=== PATIENT | female | born 1930 | race Caucasian/White ===

== ENCOUNTER 2017-10-30 17:21 | Inpatient (IN) | payer MEDICARE, OTHER ==
[2017-10-30 18:17] LABS: Bilirubin Negative (Negative); Blood, Urine Negative (Negative); Clarity CLEAR (Clear); Glucose, Urine (Dipstick) Negative (Negative); Leukocyte Negative (Negative); Nitrite Negative (Negative); Protein, Urine (Dipstick) Negative (Neg-Trace); Specific Gravity, Urine 1.015 (1.002-1.036); Urobilinogen 0.2 mg/dL (0.2-1.0); pH, Urine 6.5 (5.0-9.0)
--- NOTE | 2017-10-30 18:47 | RAD ---
PORTABLE CHEST: 10/30/17 HISTORY: Shortness of breath. COMPARISON: 04/26/15. Lungs show no evidence of focal infiltrate. Heart size is within normal range. Mild increased interst itial markings which appear more prominent than on the prior study. Vascular markings do not appear c ongested. No effusion. IMPRESSION: Chronic appearing interstitial markings. No focal infiltrate or evidence of acute process. POS: [facility]
[2017-10-30 19:03] LABS: Hemoglobin 9.6 g/dL (12.0-16.0); Mean Corpuscular HGB CONC 32.6 g/dL (32.0-36.0); Mean Corpuscular Hemoglobin 32.9 pg (27.0-31.0); Mean Platelet Volume 7.5 fL (7.4-10.4); Platelet Count 248 thou/uL (130-400); RBC Distribution Width 15.6 % (11.5-14.5); Red Blood Cell (RBC) Count 2.93 mill/uL (4.20-5.40); White Blood Cell (WBC) Count 9.4 thou/uL (4.8-10.8)
[2017-10-30 19:07] LABS: INR-International Normal Ratio 1.3; PTT 41.1 SEC (22.9-36.1); Prothrombin Time 16.5 SEC (12.0-14.7)
[2017-10-30 19:23] LABS: Anisocytosis SLIGHT = 6-15 cells (100X) (0-5/hpf); Band 4 % (5-11); Hypochromia SLIGHT = 6-15 cells (100X) (0-5/hpf); Lymphocytes 9 % (21-51); MDiff Complete? YES; Monocytes 8 % (0-10); Neutrophil 79 % (42-75); PLT Morphology Comment Appears Adequate
[2017-10-30 19:26] LABS: CKMB 6.1 ng/mL (0-6.6)
[2017-10-30 19:28] LABS: ALT (SGPT) 22 U/L (8-55); AST (SGOT) 165 U/L (5-34); Albumin 3.2 g/dL (3.4-4.8); Alkaline Phosphatase 141 U/L (40-150); Anion Gap 14 mmol/L (10-20); BUN (Urea Nitrogen) 20 mg/dL (9.8-20.1); CK (CPK) 115 U/L (29-168); Calc. Creatinine Clearance 0 mL/min (70-130); Calcium 8.9 mg/dL (7.8-10.44); Carbon Dioxide 20 mmol/L (23-31); Chloride 98 mmol/L (98-107); Estimated GFR-MDRD 53; Globulin 2.5 g/dL (2.4-3.5); Lipase 19 U/L (8-78); Potassium 3.8 mmol/L (3.5-5.1); Protein, Total 5.7 g/dL (6.0-8.3); Sodium 128 mmol/L (136-145)
--- NOTE | 2017-10-30 19:28 | CT ---
CT HEAD WITHOUT CONTRAST 10/30/17 Multiple axial tomograms obtained through the head without IV enhancement. HISTORY: Weakness. Mild cortical atrophy. Ventricles have normal size and position. No evidence of mass or hemorrhage. N o evidence of acute infarct identified. IMPRESSION: No acute process identified. POS: [facility]
[2017-10-30 19:31] LABS: Glucose 59 mg/dL (83-110); Troponin I 2.315 ng/mL (< 0.028)
[2017-10-30] MEDS ORDERED: Dextrose 50% Abboject 50 ML SYRINGE ONE (20:06)
[2017-10-30] MEDS ORDERED: Enoxaparin Sodium 60 MG/0.6 ML SYRINGE ONE (20:48)
[2017-10-30 22:14] LABS: Critical Call Chem Troponin I RESULT DECREASING
[2017-10-31] MEDS ORDERED: Sodium Chloride 0.9% 1,000 ML IV SCH (01:15)
[2017-10-31] MEDS ORDERED: Ondansetron ODT 4 MG TAB SL PRN (01:16)
[2017-10-31] MEDS ORDERED: Ondansetron HCl/PF 4 MG/2 ML Vial IVP PRN (01:16)
[2017-10-31 01:38] LABS: Critical Call Chem Troponin I RESULT DECREASING; Troponin I 2.151 ng/mL (< 0.028)
[2017-10-31] MEDS ORDERED: Morphine 5 MG/ML SYRINGE SLOW IVP PRN (03:43)
[2017-10-31] MEDS ORDERED: Acetaminophen 325 MG TAB PO PRN (03:46)
[2017-10-31] MEDS: Sodium Chloride 0.9% 1,000 ML IV SCH ×3 (04:20→11:50)
--- NOTE | 2017-10-31 04:55 | HP ---
CHIEF COMPLAINT: Weakness and a fever of 101-102 at home. HISTORY OF PRESENT ILLNESS: This is an 87-year-old female with a known history of hypothyroidism who presents with a chief complaint of weakness. The patient herself is a marginal historian. It appears that the patient has a longstanding complaint of weakness extending as far back as last August when she switched primary care providers. The patient herself attributes her constellation of symptoms predominantly weakness and decreased appetite due to the change in her thyroid medication. However, when inquired as to why the patient presented today the patient states that her daughter went to go check on her, brought her into the emergency department. The patient has extreme amount focus on her hypothyroidism and her thyroid medication dosage and feels that her entire presentation is attributed to this. Despite discussing with the patient concern over her cardiac status the patient has difficulty recalling this even minutes after that was discussed. At the time of my evaluation, the patient denies any active shortness of breath, chest pain, or otherwise pain. REVIEW OF SYSTEMS: As per HPI, question the accuracy of the review of systems. CONSTITUTIONAL: Per the patient, she has not had any subjective fevers or chills per the patient, she is not aware of her weight loss or gain status. HEENT: The patient denies any active headaches, vision changes. CARDIOVASCULAR: The patient overtly denies any chest pain. She endorses generalized weakness, but denies any overt chest pressure or dyspnea with exertion or left-sided arm numbness or tingling. RESPIRATORY: The patient denies any shortness of breath, any recent upper respiratory type infections. Denies any sinus congestion, postnasal drip or cough. GASTROINTESTINAL: The patient endorses that she has been eating less and that she attributes this to being unable to ambulate to her kitchen due to her arthritis. She overtly denies any nausea. Denies any early satiety. Denies any loss of appetite. GENITOURINARY: Denies any dysuria, change in urinary color or frequency or quantity. MUSCULOSKELETAL: The patient endorses a longstanding history of arthritis. Denies any recent changes to her arthritis. Denies any new arthralgias or any new myalgias. The remainder of the review of systems is otherwise negative. PAST MEDICAL HISTORY: 1. The patient's only recollection of the past medical history is of hypothyroidism. 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 2. Esophageal stenosis. 3. Gastroesophageal reflux disease. 4. Status post bilateral cataracts. 5. Status post appendectomy. 6. Status post left hip surgery. Please note that the hip surgery is a hip replacement in 02/2015. 7. Status post right elbow surgery. 8. Status post tonsillectomy. SOCIAL HISTORY: The patient drinks daily. Denies any alcohol or tobacco use. Patient lives by herself next door to her daughter. CODE STATUS: The patient endorses that she wishes to be a full code at this point in time. The daughter will be her medical decision maker if she is unable to provide her own medical decisions. MEDICATIONS: Please see EMR. Other than her thyroid medication the patient denies taking any other medications. She does endorse taking a number of over the counter vitamins, but is unable to recall which ones. Denies any change to whatever she is taking outpatient over the counter in the last month. ALLERGIES: No known drug allergies. PHYSICAL EXAMINATION: VITAL SIGNS: Temperature 97.9, pulse of 85, respirations 18, satting 93% on 2 liters nasal cannula, blood pressure 118/60. GENERAL: The patient is awake, alert, appropriate. She appears very thin, lying in the hospital bed. HEENT: Very dry mucous membranes. Equal ocular motions are intact. Pupils are equal and reactive. CARDIOVASCULAR: S1, S2. Pulses 2+ bilateral upper extremities, no pitting pedal edema. No JVD. RESPIRATORY: Marginal air movement. No wheezes, rales or rhonchi. ABDOMEN: Positive bowel sounds, soft, nontender to palpation. NEUROLOGIC: The patient is able to move all 4 extremities. She appears extremely thin and cachectic. LABORATORY AND IMAGING: WBC 9.4, hemoglobin 9.6, hematocrit 29.6, platelets 248. PT 16.5. Sodium 128, potassium 3.8, chloride 98, BUN 20, creatinine 0.99 , glucose of 59. Repeat point of care glucose is 121. Lactic acid 2.0, calcium 8.9, total bilirubin 1.0, AST 165, ALT 22, alkaline phosphatase 141. Creatinine kinase 115. Initial troponin 2.315 followed by 2.180 followed by 2.151. B-natriuretic peptide 127.5, total protein 5.7, albumin 3.2. TSH 0.2207. UA is essentially bland. ASSESSMENT AND PLAN: An 87-year-old female presenting with weakness. 1. Weakness. The patient certainly gives a history consistent with failure to thrive. I am not clear how accurate of a historian the patient actually is. I suspect that she has had overall decreased p.o. intake. This can certainly lead to her progressive presentation. However, this does not accurately describe her elevated troponin today. 2. Lya-TF-gffglil elevation myocardial infarction with an elevated troponin. I appreciate Cardiology consult. The patient has received full dose Lovenox as her anticoagulation. Pending a fasting lipid panel, serial troponin, repeat EKG in the morning along with echocardiogram. 3. Hypothyroidism. The patient certainly preservates to a certain degree about her levothyroxine dosing. It appears on outpatient basis this has been increased to the levothyroxine dosage she has had for years prior to her changing primary care provider. She has a slightly depressed TSH at 0.2207. We will repeat and check a T4 level in the morning as well and modify her doses as needed. 4. Concern for failure to thrive. Please see discussion above. We will consult dietary, physical therapy. 5. History of esophageal stenosis. If the patient has any concern for difficulty swallowing as a cause for her decreased p.o. intake to consider a barium swallow and further evaluation for restenosis. Suspect that the patient may have sustained some weight loss and her current clinical and physical presentation is consistent with the degree of malnutrition. 6. Dietary: As tolerated. 7. Activity: Out of bed as tolerated. 8. Deep venous thrombosis prophylaxis, full dose anticoagulation with Lovenox. CODE STATUS: The patient is full code. Admit to inpatient services telemetry monitoring. Thank you for asking me to care for the patient. With questions or concerns, please contact me at [facility]. VIBHA
[2017-10-31] MEDS: Levothyroxine Sodium 50 MCG TAB PO SCH (05:22)
[2017-10-31 05:56] LABS: Troponin I 2.558 ng/mL (< 0.028)
[2017-10-31] MEDS ORDERED: Aspirin 325 MG TAB PO SCH (08:00)
[2017-10-31] MEDS ORDERED: Prevnar 13-Val Conj/PF 0.5 ML SYRINGE IM ONE (09:00)
[2017-10-31 09:11] LABS: Hemoglobin 9.2 g/dL (12.0-16.0); Mean Corpuscular HGB CONC 33.3 g/dL (32.0-36.0); Mean Corpuscular Hemoglobin 34.1 pg (27.0-31.0); Mean Platelet Volume 7.8 fL (7.4-10.4); Platelet Count 219 thou/uL (130-400); RBC Distribution Width 15.9 % (11.5-14.5); Red Blood Cell (RBC) Count 2.69 mill/uL (4.20-5.40); White Blood Cell (WBC) Count 7.3 thou/uL (4.8-10.8)
[2017-10-31 09:32] LABS: Anion Gap 11 mmol/L (10-20); BUN (Urea Nitrogen) 16 mg/dL (9.8-20.1); Calc. Creatinine Clearance 35 mL/min (70-130); Calcium 8.1 mg/dL (7.8-10.44); Carbon Dioxide 18 mmol/L (23-31); Chloride 102 mmol/L (98-107); Estimated GFR-MDRD 64; Glucose 72 mg/dL (83-110); Potassium 3.9 mmol/L (3.5-5.1); Sodium 127 mmol/L (136-145)
[2017-10-31 09:40] LABS: Band 9 % (5-11); Eosinophils 2 % (0-10); Lymphocytes 21 % (21-51); MDiff Complete? YES; Monocytes 14 % (0-10); Neutrophil 53 % (42-75); RBC Morphology Normal; Reactive Lymphocytes 1 % (0-10)
[2017-10-31 10:09] LABS: Iron 68 ug/dL (50-170); Iron Binding Capacity, Total 171 mcg/dL (265-497)
[2017-10-31 10:38] LABS: Free T4 (Free Thyroxine) 0.89 ng/dL (0.70-1.48)
[2017-10-31] MEDS ORDERED: Enoxaparin Sodium 60 MG/0.6 ML SYRINGE SC SCH ×2 (10:45→21:00)
[2017-10-31] MEDS ORDERED: Enoxaparin Sodium 40 MG/0.4 ML SYRINGE SC SCH (10:45)
[2017-10-31] MEDS: Oseltamivir 75 MG CAP PO SCH ×2 (11:28→21:34)
[2017-10-31 13:54] LABS: Troponin I 6.817 ng/mL (< 0.028)
[2017-10-31 14:13] LABS: Vitamin B12 Greater than 2000 pg/mL (211-911)
--- NOTE | 2017-10-31 14:40 | PDOC.PN ---
- Subjective Encounter Start Date: 10/31/17 Encounter Start Time: 14:38 Subjective: feels OK. -: still fixated on her thyroid dose. -: reassured that it was correct to reduce the dose by PCP - Objective Resuscitation Status: Resuscitation Status FULL:Full Resuscitation MAR Reviewed: Yes Vital Signs & Weight: Vital Signs (12 hours) Temp Pulse Pulse Pulse Resp BP BP 10/31/17 11:15 80 91 126/60 112/83 10/31/17 04:35 97.4 F L 87 20 BP Pulse Ox 10/31/17 11:15 10/31/17 04:35 124/72 93 L Weight Admit Weight 104 lb 12.8 oz Weight 106 lb 3.2 oz I&O: 10/30/17 10/31/17 11/01/17 06:59 06:59 06:59 Intake Total 493 Balance 493 Result Diagrams: 10/31/17 05:13 10/31/17 08:51 Additional Labs: Accuchecks 10/30/17 21:32 POC Glucose 121 H Microbiology 10/30/17 18:04 Nasal swab Influenza Types A,B Direct EIA - Final 10/30/17 19:27 Venous blood - Right Arm Blood Culture - Preliminary Specimen has been received and culture in progress. No Growth to date. 10/30/17 18:48 Venous blood - Right Arm Blood Culture - Preliminary Specimen has been received and culture in progress. No Growth to date. 10/30/17 18:04 Urine Straight Catheter Urine Culture - Preliminary NO GROWTH AT 12 HOURS Laboratory Tests 11/10/15 12/01/15 05/30/16 15:14 11:17 10:37 Sodium 135 L 138 133 L Iron TIBC % Saturation Troponin I Free T4 Free T3 TSH 3rd Generation 07/20/16 12/11/16 10/30/17 09:06 16:09 18:48 Sodium 133 L 130 L 128 L Iron TIBC % Saturation Troponin I Free T4 Free T3 TSH 3rd Generation 10/30/17 10/30/17 10/30/17 18:48 18:48 21:39 Sodium Iron TIBC % Saturation Troponin I 2.315 H* 2.180 H* Free T4 Free T3 TSH 3rd Generation 0.2207 L 10/31/17 10/31/17 10/31/17 00:50 05:13 08:51 Sodium Iron TIBC % Saturation Troponin I 2.151 H* 2.558 H* 5.300 H* Free T4 Free T3 TSH 3rd Generation 10/31/17 10/31/17 10/31/17 08:51 13:00 Unknown Sodium 127 L Iron 68 TIBC 171 L % Saturation 40 Troponin I 6.817 H* Free T4 Free T3 TSH 3rd Generation 10/31/17 Unknown Sodium Iron TIBC % Saturation Troponin I Free T4 0.89 Free T3 1.62 L TSH 3rd Generation Phys Exam - Physical Examination Constitutional: NAD HEENT: PERRLA, moist MMs, sclera anicteric, oral pharynx no lesions Neck: no nodes, no JVD, supple, full ROM Respiratory: no wheezing, no rales, no rhonchi, clear to auscultation bilateral Cardiovascular: RRR, no significant murmur, no rub, gallop Gastrointestinal: soft, non-tender, no distention, positive bowel sounds Musculoskeletal: no edema, pulses present Neurological: non-focal, normal sensation, moves all 4 limbs Psychiatric: normal affect, A&O x 3 Skin: no rash Dx/Plan (1) NSTEMI (non-ST elevated myocardial infarction) Code(s): I21.4 - NON-ST ELEVATION (NSTEMI) MYOCARDIAL INFARCTION Status: Acute (2) Hyponatremia Code(s): E87.1 - HYPO-OSMOLALITY AND HYPONATREMIA Status: Acute Comment: likley due to Hypothyroidism or dehydration (3) SIRS (systemic inflammatory response syndrome) Code(s): R65.10 - SIRS OF NON-INFECTIOUS ORIGIN W/O ACUTE ORGAN DYSFUNCTION Status: Acute Comment: no Clear source (4) Failure to thrive Code(s): REV0666 - Status: Acute (5) Hypothyroidism Code(s): E03.9 - HYPOTHYROIDISM, UNSPECIFIED Status: Chronic (6) Chronic anemia Code(s): D64.9 - ANEMIA, UNSPECIFIED Status: Chronic - Plan PT/OT, out of bed/ambulate, DVT proph w/SCDs Lovenox.Cardiology consulted.ECHO pending -: Add levaquin empirically .add Tamiflu empirially.NAAT-viral resp panel -: NS .monitor sodium -: unclear if dose of synthroid was recently reduced.will f/u w PCP -: follow Cx.follow labs. * .check Iron,FA,Vit B12. Review of Systems - Review of Systems Constitutional: weakness, malaise. negative: fever, chills, sweats, other ENT: negative: Ear Pain, Ear Discharge, Nose Pain, Nose Discharge, Nose Congestion, Mouth Pain, Mouth Swelling, Throat Pain, Throat Swelling, Other Respiratory: negative: Cough, Dry, Shortness of Breath, Hemoptysis, SOB with Excertion, Pleuritic Pain, Sputum, Wheezing Cardiovascular: negative: chest pain, palpitations, orthopnea, paroxysmal nocturnal dyspnea, edema, light headedness, other Gastrointestinal: negative: Nausea, Vomiting, Abdominal Pain, Diarrhea, Constipation, Melena, Hematochezia, Other Genitourinary: negative: Dysuria, Frequency, Incontinence, Hematuria, Retention , Other Musculoskeletal: negative: Neck Pain, Shoulder Pain, Arm Pain, Back Pain, Hand Pain, Leg Pain, Foot Pain, Other Skin: negative: Rash, Lesions, Boogie, Bruising, Other Neurological: negative: Weakness, Numbness, Incoordination, Change in Speech, Confusion, Seizures, Other - Medications/Allergies Allergies/Adverse Reactions: Allergies Allergy/AdvReac Type Severity Reaction Status Date / Time No Known Allergies Allergy Verified 10/31/17 01:43 Medications: Current Medications Acetaminophen (Tylenol) 650 mg PO Q4H PRN PRN Reason: Headache/Fever or Pain Enoxaparin Sodium (Lovenox) 30 mg SC ONE [facility] Stop: 10/31/17 22:00 Famotidine (Pepcid) 20 mg SLOW IVP DAILY [facility] Levofloxacin 500 mg/ Device 100 mls @ 100 mls/hr IVPB Q24HR [facility] Last Admin: 10/31/17 11:28 Dose: 100 mls Sodium Chloride (Normal Saline 0.9%) 1,000 mls @ 50 mls/hr IV .Q20H [facility] Levothyroxine Sodium (Synthroid) 50 mcg PO 0600 [facility] Last Admin: 10/31/17 05:22 Dose: 50 mcg Morphine Sulfate (Morphine) 2 mg SLOW IVP Q5MIN PRN PRN Reason: Chest Pain Oseltamivir Phosphate (Tamiflu) 75 mg PO BID [facility] Stop: 11/04/17 21:01 Last Admin: 10/31/17 11:28 Dose: 75 mg Sodium Chloride (Flush - Normal Saline) 10 ml IVF Q12HR [facility] Sodium Chloride (Flush - Normal Saline) 10 ml IVF PRN PRN PRN Reason: Saline Flush
[2017-10-31] MEDS: Famotidine/PF 20 mg/2ml Vial SLOW IVP SCH (17:50)
--- NOTE | 2017-10-31 20:53 | CON ---
DATE OF CONSULTATION: 10/31/2017 REASON FOR CONSULTATION: Non-ST elevation myocardial infarction. Ms. Devine is a pleasant 87-year-old patient of Dr. Hipolito Reece with history of mild aortic s tenosis, admitted with generalized weakness and found to have increased troponin levels. Ms. Devine was brought to the emergency room with progressive weakness as predominant symptom. She said she has been weak since at least August but was weaker yesterday and therefore, her daught er brought her to the emergency room. She is not having chest pain, pressure, heaviness or squeezing . Now her breathing is okay. REVIEW OF SYSTEMS: CONSTITUTIONAL: Generalized weakness. VISION: No changes. HEARING: No change s. PULMONARY: No cough or wheezing. CARDIAC: No chest pain. GASTROINTESTINAL: No nausea, vomiti ng, diarrhea. SKIN: No rashes. NEUROLOGIC: No unilateral weakness or numbness. PSYCHIATRIC: No unusual depression or anxiety. HEMATOLOGIC: No unusual bruising. GENITOURINARY: No burning with u rination. MUSCULOSKELETAL: No unusual joint pains. PAST MEDICAL HISTORY: 1. Hypothyroidism. 2. Esophageal stenosis. 3. 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 4. Gastroesophageal reflux. SOCIAL HISTORY: No alcohol or tobacco. CODE STATUS: FULL. MEDICATION AT HOME: Levothyroxine. PHYSICAL EXAMINATION: GENERAL: On examination, this is a very frail-appearing elderly woman. She looks underweight. VITAL SIGNS: 5 foot 3 inches tall, 106 pounds, very little muscle mass, blood pressure is 124/72, pu lse 87. EYES: Sclerae nonicteric. MOUTH: Mucous membranes moist. NECK: Supple, no lymphadenopathy. LUNGS: Clear, no wheezing, rales or rhonchi. CARDIAC: Normal S1, normal S2. There is a 2/6 apical systolic murmur. No diastolic murmur, no S3. ABDOMEN: Soft, nontender. EXTREMITIES: No clubbing, no cyanosis or edema. She has palpable dorsalis pedis pulses. SKIN: Warm and dry. PERTINENT LABORATORY DATA AND IMAGING DATA: Troponin level of 5.3 at peak. Hemoglobin was 9.2. EKG did not show any acute changes, no ST-T wave changes. ASSESSMENT: 1. Generalized weakness. 2. Non-ST elevation infarction without chest pain. 3. Likely iron deficiency anemia. 4. Hyponatremia. 5. History of hypothyroidism on replacement. IMAGING DATA: Echocardiogram revealed normal left ventricular function, mild aortic stenosis, modera te aortic insufficiency and moderate mitral regurgitation. PLAN: 1. She received Lovenox last night and then today. We will give her one for the dose tomorrow. 2. Check ferritin level tomorrow. 3. Aspirin. 4. Check lipids tomorrow. 5. Dr. Reece to see the patient tomorrow to see whether invasive testing would be in order. The patient is, however, very frail and does not have any chest pain.
[2017-10-31] MEDS ORDERED: Enoxaparin Sodium 30 MG/0.3 ML SYRINGE SC SCH (21:00)
--- NOTE | 2017-10-31 21:15 | EKG ---
Test Reason : Blood Pressure : / mmHG Vent. Rate : 082 BPM Atrial Rate : 082 BPM P-R Int : 152 ms QRS Dur : 074 ms QT Int : 432 ms P-R-T Axes : 052 -17 057 degrees QTc Int : 504 ms Sinus rhythm with Premature atrial complexes Low voltage QRS Nonspecific ST abnormality Prolonged QT Abnormal ECG When compared with ECG of 30-OCT-2017 17:42, (Unconfirmed) Premature atrial complexes are now Present Nonspecific T wave abnormality no longer evident in Inferior leads Nonspecific T wave abnormality no longer evident in Anterolateral leads QT has shortened Confirmed by DIONICIO ANDERSON ([id number]) on 10/31/2017 9:15:09 PM Referred By: KERRI Confirmed By:DIONICIO ANDERSON
[2017-10-31 23:04] LABS: Critical Call Chem Troponin I RESULT DECREASING
[2017-11-01] MEDS ORDERED: methylPREDNISolone Sod Succ/PF 125 MG/2 ML VIAL IVP SCH (04:00)
[2017-11-01] MEDS: Levothyroxine Sodium 50 MCG TAB PO SCH (04:14)
[2017-11-01] MEDS ORDERED: Lorazepam 2 MG/ML VIAL SLOW IVP SCH (04:30)
[2017-11-01 04:39] LABS: Band 14 % (5-11); Eosinophils 4 % (0-10); Hemoglobin 10.3 g/dL (12.0-16.0); Lymphocytes 23 % (21-51); MDiff Complete? YES; Mean Corpuscular Hemoglobin 34.3 pg (27.0-31.0); Mean Platelet Volume 7.6 fL (7.4-10.4); Monocytes 10 % (0-10); Neutrophil 49 % (42-75); PLT Morphology Comment Appears Adequate; Platelet Count 252 thou/uL (130-400); RBC Distribution Width 15.6 % (11.5-14.5); Red Blood Cell (RBC) Count 2.99 mill/uL (4.20-5.40); White Blood Cell (WBC) Count 8.8 thou/uL (4.8-10.8)
[2017-11-01 04:41] LABS: Troponin I 6.301 ng/mL (< 0.028)
[2017-11-01 04:44] LABS: Anion Gap 15 mmol/L (10-20); BUN (Urea Nitrogen) 15 mg/dL (9.8-20.1); Calc. Creatinine Clearance 34 mL/min (70-130); Calcium 8.5 mg/dL (7.8-10.44); Carbon Dioxide 15 mmol/L (23-31); Chloride 103 mmol/L (98-107); Cholesterol 124 mg/dl (< 200 Desired); Estimated GFR-MDRD 62; Glucose 77 mg/dL (83-110); HDL Cholesterol Less than 8 mg/dL (>60 Neg Risk); Magnesium 1.5 mg/dL (1.6-2.6); Phosphorus 2.4 mg/dL (2.3-4.7); Potassium 3.6 mmol/L (3.5-5.1); Sodium 129 mmol/L (136-145); Triglycerides 298 mg/dL (Less than 150)
[2017-11-01] MEDS ORDERED: Labetalol HCl 100 MG/20 ML VIAL SLOW IVP PRN (05:01)
[2017-11-01] MEDS ORDERED: cloNIDine 0.1 MG TAB PO PRN (05:02)
[2017-11-01] MEDS: Acetaminophen 650 MG Suppository PR PRN (05:16)
[2017-11-01] MEDS ORDERED: Magnesium 2 GM/NS 0.9% 100 ML 2 GM in Premix Bag 1 BAG IVPB SCH (05:30)
[2017-11-01] MEDS: Nitroglycerin 2% Ointment 1 INCH/1 GM Packet TOP SCH ×2 (06:29→14:13)
--- NOTE | 2017-11-01 08:13 | PQF ---
CLINICAL DOCUMENTATION IMPROVEMENT CLARIFICATION FORM: ICD-10 Updated PLEASE DO AN ADDENDUM TO THE PROGRESS NOTE WITH ANY DOCUMENTATION UPDATES OR ADDITIONS AND CARRY THROUGH TO DC SUMMARY. THANK YOU. Date: 11/01 ATTN: DR. SHADIA BROWN Please exercise your independent, professional judgment in responding to the clarification form. Clinical indicators are provided on the bottom of this form for your review. Please check appropriate box(s): [ ] Protein Calorie Malnutrition: [ ] Mild [ ] Moderate [ X] Severe [ ] Other Malnutrition (please specify) __ [ ] Underweight without malnutrition [ ] Cachexia [ ] Other diagnosis [ ] Unable to determine CLINICAL INDICATORS - SIGNS / SYMPTOMS / LABS BMI: 18.8 ATTENDING PHYSICIAN H&P DOCUMENTATION 10/30: PHYSICAL EXAM: SHE APPEARS EXTREMELY THIN AND CACHECTIC. ASSESSMENT & PLAN: 4. CONCERN FOR FAILURE TO THRIVE ATTENDING PHYSICIAN PN 10/31: DX/PLAN: 4) FAILURE TO THRIVE CARDIOLOGY CONSULT DOCUMENTATION 10/31: PHYSICAL EXAM: VERY FRAIL-APPEARING... SHE LOOKS UNDERWEIGHT... VERY LITTLE MUSCLE MASS [employer] CONSULT DOCUMENTATION: 10/31: POOR APPETITE, WEIGHT LOSS OF 3.6% IN PAST MONTH, MUSCLE WASTING OBSERVED RISK FACTORS: DECREASED PO INTAKE WEIGHT LOSS FAILURE TO THRIVE ADVANCED AGE (87) TREATMENT: DIETARY CONSULT NUTRITIONAL SUPPLEMENTS (ENSURE ENLIVE TID W/MEALS (10/31 - PRESENT) ASSISTANCE W/MEALS THANK YOU! Alysia (This form is maintained as a part of the permanent medical record) 2014 [email or web address]. All Rights Reserved Alysia Mast, RN, BSN [email or web address] Office: [phone] [facility]
[2017-11-01 08:25] LABS: CKMB 11.8 ng/mL (0-6.6)
--- NOTE | 2017-11-01 08:25 | RAD ---
PORTABLE CHEST: Date: 11/01/17 COMPARISON: 10/30/17. HISTORY: Shortness of breath. FINDINGS: Heart size is within normal limits. There are atherosclerotic changes of the aorta. Interstitial lung changes are similar to the prior exam, probably largely chronic in nature. There is some slightly mo re prominent blunting to the left costophrenic angle and slightly increased markings in the left base as compared to the prior study. IMPRESSION: Questionable development of a small left pleural effusion with some atelectasis or possibly minimal i nfiltrate developing in this area. POS: [facility]
[2017-11-01] MEDS ORDERED: Vancomycin HCl 1 GM in Premix Bag 1 BAG IVPB SCH (09:00)
[2017-11-01] MEDS ORDERED: Enoxaparin Sodium 60 MG/0.6 ML SYRINGE SC SCH (09:00)
[2017-11-01] MEDS: Sodium Chloride 0.9% 1,000 ML IV SCH ×3 (09:18→20:15)
--- NOTE | 2017-11-01 09:24 | PRG ---
DATE OF SERVICE: 11/01/2017 SUBJECTIVE: The patient was seen and evaluated by Dr. Uzma San yesterday. Ms. Devine current ly appears weak. She opens up her eyes to voice but does not communicate. Her troponin has been mitch vated with fairly normal CK-MB. PHYSICAL EXAMINATION: VITAL SIGNS: Blood pressure 90/57, pulse 90, temperature 102.9. LUNGS: Mild crackles bilaterally. HEART: Regular rate and rhythm. ABDOMEN: Soft, nontender, nondistended. EXTREMITIES: No edema. NEUROLOGIC: As above. PERTINENT LABORATORY DATA: Creatinine 0.86, sodium 129, hemoglobin 10.3. IMPRESSION: 1. Elevated troponin. 2. Febrile illness. 3. Profound weakness. RECOMMENDATIONS: Ms. Devine's troponin was elevated at 6. Her CK-MB was also 6. She likely had h er event several days ago, would be my suspicion. At this point, given her comorbidities in addition to her fever, advanced age and profound weakness with anemia, would recommend a more conservative ap proach. She is currently on antibiotic therapy and we will continue. We will monitor blood pressure and heart rate closely. Would monitor on telemetry monitoring over the next 24 hours, then transfer red to medical if stable.
[2017-11-01] MEDS: Famotidine/PF 20 mg/2ml Vial SLOW IVP SCH (09:38)
[2017-11-01] MEDS: Aspirin 325 mg Enteric Coated Tablet PO SCH ×2 (09:38→10:02)
[2017-11-01] MEDS: Oseltamivir 75 MG CAP PO SCH (09:39)
--- NOTE | 2017-11-01 14:05 | CON ---
DATE OF CONSULTATION: 11/01/2017 REASON FOR CONSULTATION: Possible sepsis. HISTORY OF PRESENT ILLNESS: An 87-year-old with history of hypothyroidism, esophageal stenosis with a longstanding history of weakness, frailness and was brought by daughter to be evaluated. She denied any headaches. No shortness of breath or chest pain. No vomiting or abdominal pain. Has been decreasing the oral intake. She has chronic arthrosis related joint pains and had been voiding spontaneously without any symptoms. Initial exam showed temperature 97.9, although there was reported temperature of 101 in house, pulse 85, respirations 18, O2 sat 93% on 2 liters. BP 118/60. She appeared appropriate, quite thin, dry oral mucosa, marginal air movement in the respiratory exam. White cell count 9.4, hemoglobin 9.6, platelets 248, 79% neutrophils, 4% bands, 9% lymphocytes. MCV 101. INR 1.3. The AST was somewhat elevated. Ferritin was high at 2600 and she had an elevated troponin. Urinalysis was normal. Thus far, patient has had 2 sets of blood cultures negative. The respiratory virus PCR panel which was negative and influenza A and B negative as well. Chest x-ray with questionable small left pleural effusion, possible minimal infiltrate developing in this area. Currently, Ms. Devine is quite drowsy. She will open her eyes and try to mumble some replies to my questions, but not very successful at that. Quite limited mobility. I could not complete review of systems with no information because of her communication impairment. 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 PAST SURGICAL HISTORY: Appendectomy, left hip replacement in 2015 and right elbow surgery. SOCIAL HISTORY: Never a smoker. Had been living by herself next door to her daughter. CURRENT MEDICATIONS: Tylenol, DuoNeb, Ecotrin, Pepcid, Normodyne, Levaquin, Synthroid, morphine, Tamiflu. Enoxaparin has been discontinued. ALLERGIES: None. PHYSICAL EXAMINATION: VITAL SIGNS: T-max 102.9 on 11/01/2017, currently 99.0, BP 96/57, pulse 114, respiratory rate 18, O2 sat 94% on 2 liters nasal cannula. SKIN: Shows no areas of skin breakdown. The patient is voiding spontaneously, has a peripheral IV access. Significant amount of temporal wasting and cachexia. HEENT: Ocular movements are conjugate, blepharitis noted. Oral cavity still with quite a few teeth in place with expected decay and gum disease. Dry oral mucosa. NECK: With no abnormalities noted. No jugular venous distention. LUNGS: With inspiratory crackles left side. HEART: S1, S2, regular rate. No S3 or S4. ABDOMEN: Soft, not distended or tender. No ascites. No bladder distention. The patient has a contracture in the right lower extremity, no edema. EXTREMITIES: Pulses are 1+ in dorsalis pedis. NEUROLOGIC: Plantar responses are upgoing on the right side. She is arousable. She establishes eye contact, but has a hard time communication due to dysarthria, may have some dysphagia as well. LABORATORY DATA: The labs have been reviewed. The latest white cell count 8.8 , hemoglobin 10.3, MCV 104, platelets 252, and 49% neutrophils, 14% bands. Sodium 129, creatinine 0.86. Magnesium 1.5, last albumin 3.2. ASSESSMENT: 1. Hypothyroidism. 2. Non-ST segment elevation myocardial infarction. 3. Immobility. 4. Abnormal neuro examination, possible prior cerebrovascular accidents. 5. Abnormal chest x-ray with small pleural effusion. 5. Hypoxemia. 6. Fever episode. 7. Bandemia. DISCUSSION: Differential diagnoses includes thromboembolism versus aspiration pneumonia, transient bacteremia is a possibility, urinary retention does not appear likely. An intraabdominal inflammatory process is not likely, but not completely ruled out, malnutrition is apparent in this patient. At this point, I would consider a swallowing function evaluation. If it has not been done yet. Discontinue Tamiflu in view of the negative respiratory virus PCR panel. The main question here is the aggressiveness of care. We could embark on a full workup with a CT angio and so on as well as duplex ultrasound of lower extremities and CT of chest to evaluate for pulmonary infiltrates. In prior discussions with family members from notes, it was apparent particularly from the note from Dr. San, that they were more interested in less aggressive management course and so, summarizing, if so desired a full workup may be embarked upon including CT angio of chest, CT abdomen or a more limited approach with the palliative care. VIBHA
--- NOTE | 2017-11-01 14:17 | PDOC.PN ---
- Subjective Encounter Start Date: 11/01/17 Encounter Start Time: 14:15 Subjective: pt very somnolent & mumbling today -: not able to swollow today - Objective Resuscitation Status: Resuscitation Status FULL:Full Resuscitation MAR Reviewed: Yes Vital Signs & Weight: Vital Signs (12 hours) Temp Pulse Pulse Resp BP BP Pulse Ox 11/01/17 13:50 92 20 11/01/17 11:20 99.0 F 114 H 18 96/57 L 94 L 11/01/17 10:47 99 20 96 11/01/17 09:23 99.2 F 97 16 97/48 L 95 11/01/17 08:58 99.0 F 114 H 91 18 97/48 L 96 11/01/17 07:32 95 11/01/17 07:30 90 20 95 11/01/17 05:00 102.9 F H 110 H 22 H 98/57 L 92 L 11/01/17 04:30 100.1 F H 115 H 24 H 187/89 H 88 L 11/01/17 04:23 126/58 L 11/01/17 04:00 92 L Pulse Ox 11/01/17 13:50 11/01/17 11:20 11/01/17 10:47 11/01/17 09:23 11/01/17 08:58 96 11/01/17 07:32 11/01/17 07:30 11/01/17 05:00 11/01/17 04:30 11/01/17 04:23 11/01/17 04:00 Weight Admit Weight 104 lb 12.8 oz Weight 106 lb 3.2 oz I&O: 10/31/17 11/01/17 11/02/17 06:59 06:59 06:59 Intake Total 493 Balance 493 Result Diagrams: 11/01/17 04:07 11/01/17 04:07 Additional Labs: Microbiology 10/31/17 04:00 Nasopharyngeal swab Respiratory Panel (PCR) - Final 10/30/17 18:04 Nasal swab Influenza Types A,B Direct EIA - Final 10/30/17 19:27 Venous blood - Right Arm Blood Culture - Preliminary Specimen has been received and culture in progress. No Growth to date. 10/30/17 19:27 Venous blood - Right Arm Blood Culture - Preliminary NO GROWTH AT 48 HOURS 10/30/17 18:48 Venous blood - Right Arm Blood Culture - Preliminary Specimen has been received and culture in progress. No Growth to date. 10/30/17 18:48 Venous blood - Right Arm Blood Culture - Preliminary NO GROWTH AT 48 HOURS 10/30/17 18:04 Urine Straight Catheter Urine Culture - Preliminary NO GROWTH AT 12 HOURS Laboratory Tests 10/30/17 10/30/17 10/30/17 18:48 18:48 18:48 Sodium 128 L Iron TIBC % Saturation CK-MB (CK-2) 6.1 Troponin I 2.315 H* B-Natriuretic Peptide 127.5 H Triglycerides Cholesterol HDL Cholesterol Vitamin B12 Folate Free T4 Free T3 TSH 3rd Generation 10/30/17 10/30/17 10/31/17 18:48 21:39 00:50 Sodium Iron TIBC % Saturation CK-MB (CK-2) Troponin I 2.180 H* 2.151 H* B-Natriuretic Peptide Triglycerides Cholesterol HDL Cholesterol Vitamin B12 Folate Free T4 Free T3 TSH 3rd Generation 0.2207 L 10/31/17 10/31/17 10/31/17 05:13 08:51 08:51 Sodium 127 L Iron TIBC % Saturation CK-MB (CK-2) Troponin I 2.558 H* 5.300 H* B-Natriuretic Peptide Triglycerides Cholesterol HDL Cholesterol Vitamin B12 Folate Free T4 Free T3 TSH 3rd Generation 10/31/17 10/31/17 10/31/17 13:00 13:00 22:15 Sodium Iron TIBC % Saturation CK-MB (CK-2) Troponin I 6.817 H* 5.070 H* B-Natriuretic Peptide Triglycerides Cholesterol HDL Cholesterol Vitamin B12 Greater than 2000 H Folate 12.80 Free T4 Free T3 TSH 3rd Generation 10/31/17 10/31/17 11/01/17 Unknown Unknown 04:07 Sodium 129 L Iron 68 TIBC 171 L % Saturation 40 CK-MB (CK-2) Troponin I B-Natriuretic Peptide Triglycerides 298 H Cholesterol 124 HDL Cholesterol Less than 8 Vitamin B12 Folate Free T4 0.89 Free T3 1.62 L TSH 3rd Generation Phys Exam - Physical Examination Constitutional: NAD frail,awake but altered HEENT: PERRLA, sclera anicteric, TM's clear, oral pharynx no lesions, 2+ tonsils dry mucosa Neck: no JVD Respiratory: no wheezing, no rales, no rhonchi, clear to auscultation bilateral Cardiovascular: RRR, no significant murmur Gastrointestinal: soft, non-tender, no distention, positive bowel sounds Musculoskeletal: no edema, pulses present Neurological: moves all 4 limbs Skin: no rash Dx/Plan (1) NSTEMI (non-ST elevated myocardial infarction) Code(s): I21.4 - NON-ST ELEVATION (NSTEMI) MYOCARDIAL INFARCTION Status: Acute (2) Metabolic encephalopathy Code(s): G93.41 - METABOLIC ENCEPHALOPATHY Status: Acute (3) Sepsis Code(s): A41.9 - SEPSIS, UNSPECIFIED ORGANISM Status: Acute (4) Septic shock Code(s): A41.9 - SEPSIS, UNSPECIFIED ORGANISM; R65.21 - SEVERE SEPSIS WITH SEPTIC SHOCK Status: Acute (5) Hyponatremia Code(s): E87.1 - HYPO-OSMOLALITY AND HYPONATREMIA Status: Acute Comment: likley due to Hypothyroidism or dehydration (6) Failure to thrive Code(s): LBZ8635 - Status: Acute (7) Hypothyroidism Code(s): E03.9 - HYPOTHYROIDISM, UNSPECIFIED Status: Chronic (8) Chronic anemia Code(s): D64.9 - ANEMIA, UNSPECIFIED Status: Chronic (9) Severe protein-calorie malnutrition Code(s): E43 - UNSPECIFIED SEVERE PROTEIN-CALORIE MALNUTRITION Status: Chronic - Plan continue antibiotics, PT/OT, social studies department chair, speech therapy, respiratory therapy, incentive spirometry, DVT proph w/SCDs Cardiac enzymes trenede upwards. will give 1 more dose of Lovenox. -: discussed w Cardiology Dr. Reece-poor candidate for any invasive proced -: cont medical management.ASA.BP low so can't do BB,NIECY-I -: add statin -: BP low w high fever-no clear source.likley sepsis w shock * .Increase IVF and consult ID.add 1 dose Vancomycin.Cont levaquin * Consult MARKETING BUSINESS ANALYST and keep NPO today as pt very somnolent. * Full code for now but critically ill and guarded prognosis. * no family at bedside. Will consult Palliative team for Code status addressing * daily labs. * NAAT negative-DC tamiflu Review of Systems - Review of Systems Other: unobtainable due to encephalopathy - Medications/Allergies Allergies/Adverse Reactions: Allergies Allergy/AdvReac Type Severity Reaction Status Date / Time No Known Allergies Allergy Verified 10/31/17 01:43 Medications: Current Medications Acetaminophen (Tylenol) 650 mg PO Q4H PRN PRN Reason: Headache/Fever or Pain Acetaminophen (Tylenol) 650 mg W[place] Q4H PRN PRN Reason: Headache/Fever or Pain Last Admin: 11/01/17 05:16 Dose: 650 mg Albuterol/Ipratropium (Duoneb) 3 ml NEB [id number] [facility] Last Admin: 11/01/17 13:50 Dose: 3 ml Albuterol/Ipratropium (Duoneb) 3 ml NEB Q2H PRN PRN Reason: SOB &/or Wheezing Aspirin (Ecotrin) 325 mg PO DAILY [facility] Last Admin: 11/01/17 10:02 Dose: Not Given Famotidine (Pepcid) 20 mg SLOW IVP DAILY [facility] Last Admin: 11/01/17 09:38 Dose: 20 mg Levofloxacin 500 mg/ Device 100 mls @ 100 mls/hr IVPB Q24HR [facility] Last Admin: 11/01/17 09:39 Dose: 100 mls Sodium Chloride (Normal Saline 0.9%) 1,000 mls @ 100 mls/hr IV .Q10H [facility] Last Admin: 11/01/17 09:37 Dose: 1,000 mls Labetalol HCl (Normodyne) 10 mg SLOW IVP Q4H PRN PRN Reason: Systolic BP > 180 Levothyroxine Sodium (Synthroid) 50 mcg PO 0600 [facility] Last Admin: 11/01/17 04:14 Dose: 50 mcg Morphine Sulfate (Morphine) 2 mg SLOW IVP Q5MIN PRN PRN Reason: Chest Pain Nitroglycerin (Nitro-Bid 2% Ointment) 0.5 inch TOP Q8HR [facility] Last Admin: 11/01/17 14:13 Dose: Not Given Sodium Chloride (Flush - Normal Saline) 10 ml IVF Q12HR [facility] Last Admin: 11/01/17 09:39 Dose: Not Given Sodium Chloride (Flush - Normal Saline) 10 ml IVF PRN PRN PRN Reason: Saline Flush
[2017-11-02] MEDS: Nitroglycerin 2% Ointment 1 INCH/1 GM Packet TOP SCH ×2 (00:06→07:53)
[2017-11-02 05:31] LABS: #Lymphocytes 0.9 thou/uL (1.20-3.40); #Monocytes 1.1 thou/uL (0.11-0.59); #Neutrophils 10.2 thou/uL (1.40-6.50); %Basophils 0.1 % (0.0-1.0); %Eosinophils 0.2 % (0.0-10.0); %Lymphocytes 7.5 % (21.0-51.0); %Monocytes 8.9 % (0.0-10.0); %Neutrophils 83.3 % (42.0-75.0); Hemoglobin 8.9 g/dL (12.0-16.0); Mean Corpuscular Hemoglobin 34.6 pg (27.0-31.0); Mean Platelet Volume 7.8 fL (7.4-10.4); Platelet Count 249 thou/uL (130-400); RBC Distribution Width 15.6 % (11.5-14.5); Red Blood Cell (RBC) Count 2.57 mill/uL (4.20-5.40); White Blood Cell (WBC) Count 12.2 thou/uL (4.8-10.8)
[2017-11-02 05:33] LABS: Anion Gap 15 mmol/L (10-20); BUN (Urea Nitrogen) 17 mg/dL (9.8-20.1); Calc. Creatinine Clearance 36 mL/min (70-130); Carbon Dioxide 13 mmol/L (23-31); Chloride 109 mmol/L (98-107); Estimated GFR-MDRD 68; Glucose 132 mg/dL (83-110); Potassium 3.3 mmol/L (3.5-5.1); Sodium 134 mmol/L (136-145)
[2017-11-02] MEDS: Sodium Chloride 0.9% 1,000 ML IV SCH (07:17)
[2017-11-02] MEDS: Levothyroxine Sodium 50 MCG TAB PO SCH (07:53)
--- NOTE | 2017-11-02 08:14 | PQF ---
CLINICAL DOCUMENTATION IMPROVEMENT CLARIFICATION FORM: ICD-10 Updated PLEASE DO AN ADDENDUM TO THE PROGRESS NOTE WITH ANY DOCUMENTATION UPDATES OR ADDITIONS AND CARRY THROUGH TO DC SUMMARY. THANK YOU. DATE: 11/02 ATTN: DR. KY OLMOS Please exercise your independent, professional judgment in responding to the clarification form. Clinical indicators are provided on the bottom of this form for your review. Please check appropriate box(es): [ ] Sepsis due to: (Pna, UTI, gangrenous gall bladder, etc.) [ x ] SIRS due to non-infectious process (please specify etiology) [ x ] with organ dysfunction [ ] without organ dysfunction [ ] Severe sepsis with acute organ dysfunction of: (Examples: respiratory failure, encephalopathy, acute kidney failure, other) [ ] Septic Shock [ ] Other diagnosis [ ] Unable to determine In addition, please specify: Present on Admission (POA): [ x ] Yes [ ] No [ ] Unable to determine For continuity of documentation, please document condition throughout progress notes and discharge summary. Thank You. CLINICAL INDICATORS - SIGNS / SYMPTOMS / LABS ER PRESENTATION 10/30: T: 101.5 (R) HR: 89-109 RR: 19-24 BP : 93/53 - 121/65 TREATMENT: 1L NS & IV LEVAQUIN ER PHYSICIAN DIAGNOSES DOCUMENTATION: NSTEMI, SIRS CRITERIA ATTENDING PHYSICIAN PN 10/31: DX/PLAN: 3) SIRS OF NON-INFECTIOUS ORIGIN W/O ACUTE ORGAN DYSFUNCTION. NO CLEAR SOURCE. ADD LEVAQUIN EMPIRICALLY ATTENDING PHYSICIAN PN 11/01: DX/PLAN: 2) METABOLIC ENCEPHALOPATHY; 3) SEPSIS ; 4) SEPTIC SHOCK; PLAN: BP LOW W/HIGH FEVER, NO CLEAR SOURCE, LIKELY SEPSIS W/SHOCK. ...INCREASE IVF & CONSULT INFECTIOUS DISEASE, ADD 1 DOSE VANCOMYCIN, CONTINUE LEVAQUIN WBC: 9.4 (ON ADMIT, 10/30) 12.2 (11/02) T: 100.1 - 102.9 (11/01) HR: 115 (11/01) RR: 22-24 (10/31 & ) RISK FACTORS: ADVANCED AGE (87) SEVERE MALNUTRITION FEVER NSTEMI TREATMENTS: IV ANTIBIOTICS (LEVAQUIN 10/30 - PRESENT; 1X DOSE VANCOMYCIN 10/31) IVF (NS 10/30 - PRESENT) INFECTIOUS DX CONSULT SERIAL LABS (CBC, BASEMET 10/30 - PRESENT) THANK YOU! Alysia (This form is maintained as a part of the permanent medical record) 2014 [employer]. All Rights Reserved Alysia Mast RN, BSN [email or web address] Office: [phone] [facility]
--- NOTE | 2017-11-02 08:27 | PRG ---
DATE OF SERVICE: 11/02/2017 Ms. Devine's status is unchanged. She a very confused this morning. Her daughter is present. No current complaints. PHYSICAL EXAMINATION: VITAL SIGNS: Blood pressure 108/56, pulse 94, temperature 97. LUNGS: Clear to auscultation. CARDIAC: Regular rate and rhythm. ABDOMEN: Soft, nontender, nondistended. EXTREMITIES: No edema. PERTINENT LABS: Hemoglobin 8.9, troponin 6.3. CK-MB 11. IMPRESSION: 1. Non-Q wave myocardial infarction. 2. Febrile illness. 3. Anemia. 4. Advanced age. RECOMMENDATIONS: I had a long discussion with the daughter about how to proceed. Apparently yesterd ay Palliative Care discussed with Ms. Devine DNR status. At that time, she appeared lucid which is unlike today. At that time she wanted everything done. The daughter certainly understands the situ ation and would prefer comfort measures. I tried to discuss this with Ms. Devine this morning and she was very confused and could not make a reasonable decision. Therefore, we will not change her st atus. I did state that conservative therapy would be recommended and the daughter agreed. We will d ecrease aspirin to 81 q.a.m. Avoid Plavix due to anemia. Will switch nitro paste to Imdur. We will avoid beta marivel therapy for now, given hypotension. Review echo.
[2017-11-02] MEDS: Metoprolol Tartrate 25 MG TAB PO SCH ×2 (09:38→23:12)
[2017-11-02] MEDS: Famotidine/PF 20 mg/2ml Vial SLOW IVP SCH (09:52)
--- NOTE | 2017-11-02 10:09 | PDOC.PN ---
- Subjective Encounter Start Date: 11/02/17 Encounter Start Time: 09:35 Subjective: f/u for NSTEMI medically managed. Nsg concerned about confusion and -: daughter reports lack of sleep overnight. More awake this am. Speech -: therapy concerned about swallowing but follows commands currently. - Objective Resuscitation Status: Resuscitation Status FULL:Full Resuscitation MAR Reviewed: Yes Vital Signs & Weight: Vital Signs (12 hours) Temp Pulse Resp BP Pulse Ox 11/02/17 08:51 98.6 F 104 H 18 102/55 L 95 11/02/17 07:57 94 L 11/02/17 07:54 97 20 11/02/17 04:00 97.3 F L 103 H 19 108/56 L 94 L 11/02/17 02:06 101 H 20 97 11/02/17 01:30 92 L Weight Admit Weight 104 lb 12.8 oz Weight 108 lb 4 oz I&O: 11/01/17 11/02/17 11/03/17 06:59 06:59 06:59 Intake Total 949 Balance 949 Result Diagrams: 11/02/17 05:07 11/02/17 05:07 Additional Labs: Accuchecks 11/02/17 05:50 POC Glucose 131 H Microbiology 10/31/17 04:00 Nasopharyngeal swab Respiratory Panel (PCR) - Final 10/30/17 18:04 Urine Straight Catheter Urine Culture - Final NO GROWTH AT 36 HOURS 10/30/17 18:04 Nasal swab Influenza Types A,B Direct EIA - Final Specimen has been received and culture in progress. No Growth to date. 10/30/17 19:27 Venous blood - Right Arm Blood Culture - Preliminary NO GROWTH AT 48 HOURS 10/30/17 18:48 Venous blood - Right Arm Blood Culture - Preliminary NO GROWTH AT 48 HOURS Microbiology 10/31/17 04:00 Nasopharyngeal swab Respiratory Panel (PCR) - Final 10/30/17 18:04 Urine Straight Catheter Urine Culture - Final NO GROWTH AT 36 HOURS 10/30/17 18:04 Nasal swab Influenza Types A,B Direct EIA - Final 10/30/17 19:27 Venous blood - Right Arm Blood Culture - Preliminary NO GROWTH AT 48 HOURS 10/30/17 18:48 Venous blood - Right Arm Blood Culture - Preliminary NO GROWTH AT 48 HOURS Laboratory Tests 10/30/17 10/30/17 10/30/17 18:48 18:48 18:48 WBC Hgb Potassium Carbon Dioxide 20 L Ferritin Troponin I 2.315 H* B-Natriuretic Peptide 127.5 H 10/30/17 10/31/17 10/31/17 21:39 00:50 05:13 WBC Hgb Potassium Carbon Dioxide Ferritin Troponin I 2.180 H* 2.151 H* 2.558 H* B-Natriuretic Peptide 10/31/17 10/31/17 10/31/17 05:13 08:51 08:51 WBC Hgb 9.2 L Potassium Carbon Dioxide 18 L Ferritin Troponin I 5.300 H* B-Natriuretic Peptide 10/31/17 11/01/17 11/01/17 13:00 04:07 04:07 WBC 8.8 Hgb 10.3 L Potassium 3.6 Carbon Dioxide 15 L Ferritin Troponin I 6.817 H* B-Natriuretic Peptide 11/01/17 11/01/17 11/01/17 04:07 04:07 04:07 WBC Hgb Potassium Carbon Dioxide Ferritin 2607.82 H Troponin I 6.301 H* B-Natriuretic Peptide 613.4 H EKG Reviewed by me: Yes (Tele - SR) Phys Exam - Physical Examination Constitutional: NAD HEENT: PERRLA, oral pharynx no lesions Neck: no JVD, supple Respiratory: no wheezing, clear to auscultation bilateral Cardiovascular: RRR Gastrointestinal: soft, non-tender, no distention, positive bowel sounds Musculoskeletal: no edema, pulses present Neurological: normal sensation, moves all 4 limbs A x O x 2 Skin: normal turgor, cap refill <2 seconds Dx/Plan (1) NSTEMI (non-ST elevated myocardial infarction) Code(s): I21.4 - NON-ST ELEVATION (NSTEMI) MYOCARDIAL INFARCTION Status: Acute Comment: Medical mgmt, continue ASA 81mg daily, no aggressive intervention (2) Metabolic encephalopathy Code(s): G93.41 - METABOLIC ENCEPHALOPATHY Status: Acute Comment: Multifactorial including NSTEMI, supportive (3) SIRS (systemic inflammatory response syndrome) Code(s): R65.10 - SIRS OF NON-INFECTIOUS ORIGIN W/O ACUTE ORGAN DYSFUNCTION Status: Acute Comment: Suspected but all cultures negative, d/c abx (4) Failure to thrive Code(s): [id number] - Status: Acute Comment: Likely multifactorial, protein supplementation, ? Home health services (5) Chronic anemia Code(s): D64.9 - ANEMIA, UNSPECIFIED Status: Chronic Comment: stable (6) Hypertension Code(s): I10 - ESSENTIAL (PRIMARY) HYPERTENSION Status: Chronic Qualifiers: Hypertension type: essential hypertension Qualified Code(s): I10 - Essential (primary) hypertension (7) Hypothyroidism Code(s): E03.9 - HYPOTHYROIDISM, UNSPECIFIED Status: Chronic Comment: Continue Levothyroxine 50mcg daily - Plan plan discussed w/ family, PT/OT, community mental health social worker, speech therapy, out of bed/ ambulate, DVT proph w/SCDs Stable currently -: Encourage regular sleep patterns -: D/C IV abx -: OOB with PT -: Start pureed diet * Palliative care consult * Change IVF NS KCL 100ml/h * AM lab: BMP, CBC
[2017-11-02] MEDS: Potassium Chloride 40 MEQ in Sodium Chloride 0.45% 1,000 ML IV SCH ×2 (11:19→23:12)
--- NOTE | 2017-11-02 14:45 | PRG ---
DATE OF SERVICE: 11/02/2017 SUBJECTIVE: Ms. Devine is awake, but she is confused. The review of systems is not reliable. Anna garcia has not had any urinary output for the morning. According to the nurse, the patient seems to be somewhat bewildered. She denies pain at this time. PHYSICAL EXAMINATION: EYES: Ocular movements are conjugate. NECK: Supple. LUNGS: Symmetric air entry. S1, S2. ABDOMEN: Soft with question of bladder distention. EXTREMITIES: She is able to move all extremities. VITAL SIGNS: Last temperature elevation was yesterday at 5:00 p.m. at 102.9. She is currently afebr ile. LABORATORY DATA AND IMAGING DATA: White cell count is up to 12.2, hemoglobin 8.9, platelets 249 with 82% neutrophils. Sodium 134, creatinine 0.8. Microbiology data; we have negative respiratory virus PCR. Two sets of negative blood cultures thus far. Urine cultures, no growth at 36 hours and have a reported chest x-ray from yesterday with possible left small pleural effusion and possible minimal infiltrate. ASSESSMENT AND DISCUSSION: Hypothyroidism, non-ST segment elevation myocardial infarction, immobilit y, abnormal neuro exam, abnormal chest x-ray, hypoxemia, fever, bandemia. We had discussion with dif ferential diagnoses including thromboembolism, transient bacteremia and focal inflammatory processes in the chest or abdomen. The main question here is the extent of the management aggressiveness ubaldo ed by the family members. I would advise palliative care at this point in time. If the family ubaldo es to continue aggressive management, then would have to consider scanning her chest and abdomen, rul e out PE and evaluate for inflammatory process in the abdominal cavity and chest, maybe an early deve loping pneumonia with possibility of aspiration pneumonitis and so on.
[2017-11-02] MEDS ORDERED: Melatonin 3 MG TAB PO SCH (21:00)
[2017-11-02] MEDS ORDERED: Ziprasidone 20 MG VIAL IM SCH (23:00)
[2017-11-02] MEDS ORDERED: Sterile Water 10 ML VIAL FS SCH (23:00)
[2017-11-03] MEDS: Levothyroxine Sodium 50 MCG TAB PO SCH (05:08)
[2017-11-03 06:37] LABS: Band 8 % (5-11); Hemoglobin 9.1 g/dL (12.0-16.0); Lymphocytes 10 % (21-51); MDiff Complete? YES; Mean Corpuscular HGB CONC 33.7 g/dL (32.0-36.0); Mean Corpuscular Hemoglobin 34.5 pg (27.0-31.0); Mean Platelet Volume 7.3 fL (7.4-10.4); Monocytes 7 % (0-10); Neutrophil 75 % (42-75); PLT Morphology Comment Appears Adequate; Platelet Count 281 thou/uL (130-400); RBC Distribution Width 15.7 % (11.5-14.5); Red Blood Cell (RBC) Count 2.64 mill/uL (4.20-5.40)
[2017-11-03] MEDS: Potassium Chloride 40 MEQ in Sodium Chloride 0.45% 1,000 ML IV SCH (07:20)
[2017-11-03 07:32] LABS: Anion Gap 13 mmol/L (10-20); BUN (Urea Nitrogen) 19 mg/dL (9.8-20.1); Calc. Creatinine Clearance 37 mL/min (70-130); Calcium 8.1 mg/dL (7.8-10.44); Carbon Dioxide 13 mmol/L (23-31); Chloride 112 mmol/L (98-107); Estimated GFR-MDRD 66; Glucose 92 mg/dL (83-110); Potassium 5.2 mmol/L (3.5-5.1); Sodium 133 mmol/L (136-145)
[2017-11-03] MEDS: Famotidine 20 MG TAB PO SCH (09:21)
[2017-11-03] MEDS: Metoprolol Tartrate 25 MG TAB PO SCH ×2 (09:22→20:28)
[2017-11-03] MEDS: Acetaminophen 650 MG Suppository PR PRN (10:03)
[2017-11-03] MEDS: Dextrose 5 % And 0.9 % NaCl 1,000 ML IV SCH (11:53)
--- NOTE | 2017-11-03 13:02 | PDOC.PN ---
- Subjective Encounter Start Date: 11/03/17 Encounter Start Time: 10:35 Subjective: barely awakens with touch and soon falls asleep -: got ford last night for agitation -: daughters at bedside - Objective Resuscitation Status: Resuscitation Status DNR:Do Not Resuscitate MAR Reviewed: Yes Vital Signs & Weight: Vital Signs (12 hours) Temp Pulse Resp BP Pulse Ox 11/03/17 12:22 98.3 F 94 20 105/63 92 L 11/03/17 09:49 99.9 F H 88 24 H 122/70 94 L 11/03/17 08:10 99.9 F H 88 24 H 11/03/17 07:20 94 L 11/03/17 07:19 95 16 11/03/17 04:13 97.4 F L 105 H 20 115/83 92 L 11/03/17 03:03 90 L 11/03/17 02:36 96 16 90 L Weight Admit Weight 104 lb 12.8 oz Weight 110 lb 1.6 oz I&O: 11/02/17 11/03/17 11/04/17 06:59 06:59 06:59 Intake Total 949 2242 Output Total 1100 Balance 949 1142 Result Diagrams: 11/03/17 06:04 11/03/17 06:04 Phys Exam - Physical Examination HEENT: PERRLA dry mucosa Neck: no JVD, supple Respiratory: no wheezing, no rales Cardiovascular: RRR, no significant murmur Gastrointestinal: soft, non-tender, positive bowel sounds Musculoskeletal: no edema, pulses present Neurological: non-focal, moves all 4 limbs Dx/Plan (1) Hyponatremia Code(s): E87.1 - HYPO-OSMOLALITY AND HYPONATREMIA Status: Acute (2) Metabolic encephalopathy Code(s): G93.41 - METABOLIC ENCEPHALOPATHY Status: Acute Comment: Multifactorial including NSTEMI, supportive (3) NSTEMI (non-ST elevated myocardial infarction) Code(s): I21.4 - NON-ST ELEVATION (NSTEMI) MYOCARDIAL INFARCTION Status: Acute Comment: Medical mgmt, continue ASA 81mg daily, no aggressive intervention (4) Sepsis Code(s): A41.9 - SEPSIS, UNSPECIFIED ORGANISM Status: Acute Qualifiers: Sepsis type: sepsis due to unspecified organism Qualified Code(s): A41.9 - Sepsis, unspecified organism (5) Chronic anemia Code(s): D64.9 - ANEMIA, UNSPECIFIED Status: Chronic Comment: stable (6) Hypertension Code(s): I10 - ESSENTIAL (PRIMARY) HYPERTENSION Status: Chronic Qualifiers: Hypertension type: essential hypertension Qualified Code(s): I10 - Essential (primary) hypertension (7) Hypothyroidism Code(s): E03.9 - HYPOTHYROIDISM, UNSPECIFIED Status: Chronic Qualifiers: Hypothyroidism type: unspecified Qualified Code(s): E03.9 - Hypothyroidism , unspecified Comment: Continue Levothyroxine 50mcg daily (8) Failure to thrive Code(s): [id number] - Status: Acute - Plan d/w 2 daughters at bedside -: pt is DNR now, plan to wait 24-36hrs to see if she makes a turn around -: for now continue iv hydration, levaquin, nebs -: tx to medical floor -: if pt worsens family is willing for hospice/comfort care * . Review of Systems - Medications/Allergies Allergies/Adverse Reactions: Allergies Allergy/AdvReac Type Severity Reaction Status Date / Time No Known Allergies Allergy Verified 10/31/17 01:43 Medications: Current Medications Acetaminophen (Tylenol) 650 mg PO Q4H PRN PRN Reason: Headache/Fever or Pain Acetaminophen (Tylenol) 650 mg ID Q4H PRN PRN Reason: Headache/Fever or Pain Last Admin: 11/03/17 10:03 Dose: 650 mg Albuterol/Ipratropium (Duoneb) 3 ml NEB [id number] [id number] Last Admin: 11/03/17 10:55 Dose: Not Given Albuterol/Ipratropium (Duoneb) 3 ml NEB Q2H PRN PRN Reason: SOB &/or Wheezing Aspirin (Aspirin Chewable) 81 mg PO DAILY [facility] Last Admin: 11/03/17 09:20 Dose: Not Given Famotidine (Pepcid) 20 mg PO DAILY [facility] Last Admin: 11/03/17 09:21 Dose: Not Given Levofloxacin 500 mg/ Device 100 mls @ 100 mls/hr IVPB Q24HR [facility] Last Admin: 11/03/17 10:28 Dose: 100 mls Dextrose/Sodium Chloride (D5 0.9% Ns) 1,000 mls @ 50 mls/hr IV .Q20H [facility] Last Admin: 11/03/17 11:53 Dose: 1,000 mls Isosorbide Mononitrate (Imdur Er) 30 mg PO DAILY [facility] Last Admin: 11/03/17 09:21 Dose: Not Given Labetalol HCl (Normodyne) 10 mg SLOW IVP Q4H PRN PRN Reason: Systolic BP > 180 Levothyroxine Sodium (Synthroid) 50 mcg PO 0600 [facility] Last Admin: 11/03/17 05:08 Dose: Not Given Metoprolol Tartrate (Lopressor) 12.5 mg PO BID [facility] Last Admin: 11/03/17 09:22 Dose: Not Given Morphine Sulfate (Morphine) 2 mg SLOW IVP Q5MIN PRN PRN Reason: Chest Pain Sodium Chloride (Flush - Normal Saline) 10 ml IVF Q12HR [facility] Last Admin: 11/03/17 10:27 Dose: 10 ml Sodium Chloride (Flush - Normal Saline) 10 ml IVF PRN PRN PRN Reason: Saline Flush
--- NOTE | 2017-11-03 16:01 | PDOC.CTH ---
Cardiology Progress Note - Subjective No new issues. Minimally responsive. - Objective Vital Signs Temp Pulse Resp BP Pulse Ox 11/03/17 15:28 98.3 F 94 20 95 11/03/17 12:22 98.3 F 94 20 105/63 92 L 11/03/17 09:49 99.9 F H 88 24 H 122/70 94 L 11/03/17 08:10 99.9 F H 88 24 H 11/03/17 07:20 94 L 11/03/17 07:19 95 16 11/03/17 04:13 97.4 F L 105 H 20 115/83 92 L Admit Weight 104 lb 12.8 oz Weight 110 lb 1.6 oz 11/02/17 11/03/17 11/04/17 06:59 06:59 06:59 Intake Total 949 2242 Output Total 1100 Balance 949 1142 - Physical Examination General/Neuro: other: (Non verbal.) Neck: no JVD present Lungs: unlabored respirations Heart: RRR Abdomen: NT/ND Extremities: other: (no edema) - Telemetry Telemetry Rhythm: NSR - Labs Result Diagrams: 11/03/17 06:04 11/03/17 06:04 Troponin/CKMB CK-MB (CK-2) 11.8 ng/mL (0-6.6) H* 11/01/17 07:37 Troponin I 6.301 ng/mL (< 0.028) H* 11/01/17 04:07 - Assessment/Plan 1. NSTEMI, demand ischemia 2. Febrille illness. 3. Anemia 4. Advanced age. PLAN: - Conservative therapy. - No new recs.
[2017-11-04] MEDS ORDERED: Ondansetron HCl/PF 4 MG/2 ML Vial IVP PRN (01:52)
[2017-11-04] MEDS: Levothyroxine Sodium 50 MCG TAB PO SCH (05:49)
[2017-11-04 06:21] LABS: Anion Gap 12 mmol/L (10-20); BUN (Urea Nitrogen) 15 mg/dL (9.8-20.1); Calc. Creatinine Clearance 36 mL/min (70-130); Carbon Dioxide 15 mmol/L (23-31); Chloride 113 mmol/L (98-107); Estimated GFR-MDRD 64; Glucose 61 mg/dL (83-110); Potassium 4.5 mmol/L (3.5-5.1); Sodium 135 mmol/L (136-145)
[2017-11-04 06:29] LABS: Band 3 % (5-11); Eosinophils 3 % (0-10); Hemoglobin 9.8 g/dL (12.0-16.0); Lymphocytes 15 % (21-51); MDiff Complete? YES; Macrocytosis SLIGHT = 6-15 cells (100X) (0-5/hpf); Mean Corpuscular HGB CONC 33.5 g/dL (32.0-36.0); Mean Corpuscular Hemoglobin 34.9 pg (27.0-31.0); Monocytes 9 % (0-10); Neutrophil 64 % (42-75); PLT Morphology Comment Appears Adequate; Platelet Count 237 thou/uL (130-400); RBC Distribution Width 15.6 % (11.5-14.5); Reactive Lymphocytes 6 % (0-10); Red Blood Cell (RBC) Count 2.81 mill/uL (4.20-5.40); Spherocytes SLIGHT = 1-5 cells (100X) (None Seen); White Blood Cell (WBC) Count 8.9 thou/uL (4.8-10.8)
[2017-11-04] MEDS: Dextrose 5 % And 0.9 % NaCl 1,000 ML IV SCH (07:50)
[2017-11-04] MEDS: Famotidine 20 MG TAB PO SCH (10:27)
[2017-11-04] MEDS: Metoprolol Tartrate 25 MG TAB PO SCH ×2 (10:27→20:05)
--- NOTE | 2017-11-04 11:44 | PDOC.PN ---
- Subjective Encounter Start Date: 11/04/17 Encounter Start Time: 07:45 Subjective: awakens easily, is wanting to drink something -: still lethargic, moves all exremities - Objective Resuscitation Status: Resuscitation Status DNR:Do Not Resuscitate MAR Reviewed: Yes Vital Signs & Weight: Vital Signs (12 hours) Temp Pulse Resp BP Pulse Ox 11/04/17 11:34 99.2 F 94 18 106/61 80 L 11/04/17 08:38 98.9 F 93 20 113/74 98 11/04/17 08:00 98.9 F 93 20 11/04/17 04:00 98.4 F 106 H 22 H 119/81 98 11/04/17 01:30 102 H 16 92 L Weight Admit Weight 104 lb 12.8 oz Weight 110 lb 1.6 oz I&O: 11/03/17 11/04/17 11/05/17 06:59 06:59 06:59 Intake Total 2242 600 Output Total 1100 800 Balance 1142 -200 Result Diagrams: 11/04/17 05:04 11/04/17 05:04 Additional Labs: Accuchecks 11/04/17 05:21 POC Glucose 74 Phys Exam - Physical Examination HEENT: PERRLA, sclera anicteric dry mucosa Neck: no JVD, supple Respiratory: no wheezing, no rales Cardiovascular: RRR, no significant murmur Gastrointestinal: soft, non-tender, positive bowel sounds Musculoskeletal: no edema, pulses present Neurological: non-focal, moves all 4 limbs Dx/Plan (1) Hyponatremia Code(s): E87.1 - HYPO-OSMOLALITY AND HYPONATREMIA Status: Acute Comment: resolving (2) Metabolic encephalopathy Code(s): G93.41 - METABOLIC ENCEPHALOPATHY Status: Acute Comment: Multifactorial including NSTEMI, supportive (3) NSTEMI (non-ST elevated myocardial infarction) Code(s): I21.4 - NON-ST ELEVATION (NSTEMI) MYOCARDIAL INFARCTION Status: Acute Comment: Medical mgmt, continue ASA 81mg daily, no aggressive intervention (4) Sepsis Code(s): A41.9 - SEPSIS, UNSPECIFIED ORGANISM Status: Acute Qualifiers: Sepsis type: sepsis due to unspecified organism Qualified Code(s): A41.9 - Sepsis, unspecified organism (5) Chronic anemia Code(s): D64.9 - ANEMIA, UNSPECIFIED Status: Chronic Comment: stable (6) Hypertension Code(s): I10 - ESSENTIAL (PRIMARY) HYPERTENSION Status: Chronic Qualifiers: Hypertension type: essential hypertension Qualified Code(s): I10 - Essential (primary) hypertension (7) Hypothyroidism Code(s): E03.9 - HYPOTHYROIDISM, UNSPECIFIED Status: Chronic Qualifiers: Hypothyroidism type: unspecified Qualified Code(s): E03.9 - Hypothyroidism , unspecified Comment: Continue Levothyroxine 50mcg daily (8) Failure to thrive Code(s): [id number] - Status: Acute (9) Dementia Code(s): F03.90 - UNSPECIFIED DEMENTIA WITHOUT BEHAVIORAL DISTURBANCE Status: Chronic Qualifiers: Dementia type: unspecified type Dementia behavioral disturbance: with behavioral disturbance Qualified Code(s): F03.91 - Unspecified dementia with behavioral disturbance - Plan gentle iv hydration until she can eat -: ensure 1 can bid, to try full liq diet first -: on levaq, nebs, humidified oxygen -: d/w daughter at bedside -: prognosis guarded * . Review of Systems - Medications/Allergies Allergies/Adverse Reactions: Allergies Allergy/AdvReac Type Severity Reaction Status Date / Time No Known Allergies Allergy Verified 10/31/17 01:43 Medications: Current Medications Acetaminophen (Tylenol) 650 mg PO Q4H PRN PRN Reason: Headache/Fever or Pain Acetaminophen (Tylenol) [address] Q4H PRN PRN Reason: Headache/Fever or Pain Last Admin: 11/03/17 10:03 Dose: 650 mg Albuterol/Ipratropium (Duoneb) 3 ml NEB Q2H PRN PRN Reason: SOB &/or Wheezing Last Admin: 11/04/17 01:30 Dose: 3 ml Aspirin (Aspirin Chewable) 81 mg PO DAILY [facility] Last Admin: 11/04/17 10:27 Dose: Not Given Famotidine (Pepcid) 20 mg PO DAILY [facility] Last Admin: 11/04/17 10:27 Dose: Not Given Levofloxacin 500 mg/ Device 100 mls @ 100 mls/hr IVPB Q24HR [facility] Last Admin: 11/04/17 07:50 Dose: 100 mls Dextrose/Sodium Chloride (D5 0.9% Ns) 1,000 mls @ 50 mls/hr IV .Q20H [facility] Last Admin: 11/04/17 07:50 Dose: 1,000 mls Isosorbide Mononitrate (Imdur Er) 30 mg PO DAILY [facility] Last Admin: 11/04/17 10:27 Dose: Not Given Labetalol HCl (Normodyne) 10 mg SLOW IVP Q4H PRN PRN Reason: Systolic BP > 180 Levothyroxine Sodium (Synthroid) 50 mcg PO 0600 [facility] Last Admin: 11/04/17 05:49 Dose: Not Given Metoprolol Tartrate (Lopressor) 12.5 mg PO BID [facility] Last Admin: 11/04/17 10:27 Dose: Not Given Morphine Sulfate (Morphine) 2 mg SLOW IVP Q5MIN PRN PRN Reason: Chest Pain Ondansetron HCl (Zofran) 4 mg IVP Q6H PRN PRN Reason: Nausea/Vomiting Sodium Chloride (Flush - Normal Saline) 10 ml IVF Q12HR [facility] Last Admin: 11/04/17 10:27 Dose: Not Given Sodium Chloride (Flush - Normal Saline) 10 ml IVF PRN PRN PRN Reason: Saline Flush
[2017-11-05] MEDS: Dextrose 5 % And 0.9 % NaCl 1,000 ML IV SCH ×2 (02:45→23:59)
[2017-11-05] MEDS: Levothyroxine Sodium 50 MCG TAB PO SCH (04:38)
[2017-11-05 05:54] LABS: Anion Gap 11 mmol/L (10-20); BUN (Urea Nitrogen) 12 mg/dL (9.8-20.1); Calc. Creatinine Clearance 37 mL/min (70-130); Calcium 7.5 mg/dL (7.8-10.44); Carbon Dioxide 16 mmol/L (23-31); Chloride 112 mmol/L (98-107); Estimated GFR-MDRD 67; Glucose 80 mg/dL (83-110); Potassium 3.6 mmol/L (3.5-5.1); Sodium 135 mmol/L (136-145)
[2017-11-05 06:06] LABS: Band 4 % (5-11); Eosinophils 3 % (0-10); Hemoglobin 8.8 g/dL (12.0-16.0); Lymphocytes 16 % (21-51); MDiff Complete? YES; Mean Corpuscular HGB CONC 33.7 g/dL (32.0-36.0); Mean Corpuscular Hemoglobin 34.8 pg (27.0-31.0); Mean Platelet Volume 8.1 fL (7.4-10.4); Monocytes 11 % (0-10); Neutrophil 66 % (42-75); PLT Morphology Comment Appears Adequate; Platelet Count 211 thou/uL (130-400); RBC Distribution Width 15.3 % (11.5-14.5); Red Blood Cell (RBC) Count 2.53 mill/uL (4.20-5.40); White Blood Cell (WBC) Count 7.6 thou/uL (4.8-10.8)
--- NOTE | 2017-11-05 08:32 | PRG ---
DATE OF SERVICE: 11/05/2017 SUBJECTIVE: Ms. Devine's status is unchanged. She was recently transferred from [facility] to [facility]. Family is anticipating placement. PHYSICAL EXAMINATION: VITAL SIGNS: Blood pressure 103/68, pulse 75, temperature 98.2. LUNGS: Clear to auscultation. HEART: Regular rate and rhythm. ABDOMEN: Soft, nontender, nondistended. EXTREMITIES: No edema. IMPRESSION: 1. Non-Q myocardial infarction. 2. Febrile illness. 3. Advanced dementia. RECOMMENDATIONS: From a cardiovascular standpoint, she is stable. Would continue conservative thera py. Family is awaiting placement. Otherwise, I have no further recommendations. Please reconsult i f needed.
[2017-11-05] MEDS: Metoprolol Tartrate 25 MG TAB PO SCH ×2 (10:21→20:51)
[2017-11-05] MEDS: Famotidine 20 MG TAB PO SCH (10:21)
[2017-11-05 12:47] VITALS: BMI 19.5
--- NOTE | 2017-11-05 13:25 | PDOC.PN ---
- Subjective Encounter Start Date: 11/05/17 Encounter Start Time: 11:00 Subjective: lethargic but awakens easily, is oriented well -: not eating/drinking much per daughter at bedside -: no sob, is moving all extremities - Objective Resuscitation Status: Resuscitation Status DNR:Do Not Resuscitate MAR Reviewed: Yes Vital Signs & Weight: Vital Signs (12 hours) Temp Pulse Resp BP Pulse Ox 11/05/17 11:00 97.8 F 87 16 104/66 92 L 11/05/17 08:00 98.2 F 88 20 94 L 11/05/17 07:00 98.2 F 88 20 109/72 94 L Weight Admit Weight 104 lb 12.8 oz Weight 110 lb 1.6 oz I&O: 11/04/17 11/05/17 11/06/17 06:59 06:59 06:59 Intake Total 600 1450 Output Total 800 550 Balance -200 900 Result Diagrams: 11/05/17 05:05 11/05/17 05:05 Phys Exam - Physical Examination HEENT: PERRLA dry mucosa Neck: no JVD, supple Respiratory: no wheezing, no rales Cardiovascular: RRR, no significant murmur Gastrointestinal: soft, non-tender, positive bowel sounds Musculoskeletal: no edema, pulses present Neurological: non-focal, moves all 4 limbs Dx/Plan (1) Hyponatremia Code(s): E87.1 - HYPO-OSMOLALITY AND HYPONATREMIA Status: Acute Comment: resolving (2) Metabolic encephalopathy Code(s): G93.41 - METABOLIC ENCEPHALOPATHY Status: Acute Comment: Multifactorial including NSTEMI, supportive (3) NSTEMI (non-ST elevated myocardial infarction) Code(s): I21.4 - NON-ST ELEVATION (NSTEMI) MYOCARDIAL INFARCTION Status: Acute Comment: Medical mgmt, continue ASA 81mg daily, no aggressive intervention (4) Sepsis Code(s): A41.9 - SEPSIS, UNSPECIFIED ORGANISM Status: Acute Qualifiers: Sepsis type: sepsis due to unspecified organism Qualified Code(s): A41.9 - Sepsis, unspecified organism (5) Chronic anemia Code(s): D64.9 - ANEMIA, UNSPECIFIED Status: Chronic Comment: stable (6) Hypertension Code(s): I10 - ESSENTIAL (PRIMARY) HYPERTENSION Status: Chronic Qualifiers: Hypertension type: essential hypertension Qualified Code(s): I10 - Essential (primary) hypertension (7) Hypothyroidism Code(s): E03.9 - HYPOTHYROIDISM, UNSPECIFIED Status: Chronic Qualifiers: Hypothyroidism type: unspecified Qualified Code(s): E03.9 - Hypothyroidism , unspecified Comment: Continue Levothyroxine 50mcg daily (8) Failure to thrive Code(s): [id number] - Status: Acute (9) Dementia Code(s): F03.90 - UNSPECIFIED DEMENTIA WITHOUT BEHAVIORAL DISTURBANCE Status: Chronic Qualifiers: Dementia type: unspecified type Dementia behavioral disturbance: with behavioral disturbance Qualified Code(s): F03.91 - Unspecified dementia with behavioral disturbance - Plan add megace for appetite stimulation, ensure tid -: PT to mobilize oob to chair and amb as tolerated -: d/w daughter at bedside -: is slowly improving, cognitively has improved -: on levaquin, gentle iv fluids, asp, lopressor and imdur * . Review of Systems - Medications/Allergies Allergies/Adverse Reactions: Allergies Allergy/AdvReac Type Severity Reaction Status Date / Time No Known Allergies Allergy Verified 10/31/17 01:43 Medications: Current Medications Acetaminophen (Tylenol) 650 mg PO Q4H PRN PRN Reason: Headache/Fever or Pain Acetaminophen (Tylenol) 650 mg ID Q4H PRN PRN Reason: Headache/Fever or Pain Last Admin: 11/03/17 10:03 Dose: 650 mg Albuterol/Ipratropium (Duoneb) 3 ml NEB Q2H PRN PRN Reason: SOB &/or Wheezing Last Admin: 11/05/17 00:18 Dose: 3 ml Aspirin (Aspirin Chewable) 81 mg PO DAILY [facility] Last Admin: 11/05/17 10:21 Dose: Not Given Famotidine (Pepcid) 20 mg PO DAILY [facility] Last Admin: 11/05/17 10:21 Dose: Not Given Levofloxacin 500 mg/ Device 100 mls @ 100 mls/hr IVPB Q24HR [facility] Last Admin: 11/05/17 10:18 Dose: 100 mls Dextrose/Sodium Chloride (D5 0.9% Ns) 1,000 mls @ 50 mls/hr IV .Q20H [facility] Last Admin: 11/05/17 02:45 Dose: 1,000 mls Isosorbide Mononitrate (Imdur Er) 30 mg PO DAILY [facility] Last Admin: 11/05/17 10:21 Dose: Not Given Labetalol HCl (Normodyne) 10 mg SLOW IVP Q4H PRN PRN Reason: Systolic BP > 180 Levothyroxine Sodium (Synthroid) 50 mcg PO 0600 [facility] Last Admin: 11/05/17 04:38 Dose: Not Given Megestrol Acetate (Megace) 40 mg PO BID [facility] Metoprolol Tartrate (Lopressor) 12.5 mg PO BID [facility] Last Admin: 11/05/17 10:21 Dose: Not Given Morphine Sulfate (Morphine) 2 mg SLOW IVP Q5MIN PRN PRN Reason: Chest Pain Ondansetron HCl (Zofran) 4 mg IVP Q6H PRN PRN Reason: Nausea/Vomiting Sodium Chloride (Flush - Normal Saline) 10 ml IVF Q12HR [facility] Last Admin: 11/05/17 10:21 Dose: Not Given Sodium Chloride (Flush - Normal Saline) 10 ml IVF PRN PRN PRN Reason: Saline Flush
--- NOTE | 2017-11-05 14:12 | RAD ---
PORTABLE CHEST: COMPARISON: 11/01/17 exam. HISTORY: Cough and fever. FINDINGS: Heart size appears borderline considering portable technique. There has been development of infiltra tive lung changes with some infiltrative changes in the left upper lobe and both lung bases. These c hanges are superimposed on chronic lung changes. Some element of edema could be present. Interstiti al changes are mildly prominent. IMPRESSION: 1. Borderline heart size with chronic interstitial lung changes somewhat increased since the prior e xam. This could indicate some element of edema. 2. In addition, there is evidence of some infiltrative changes of the left upper lobe and what appea rs to be some bibasilar infiltrate or atelectasis. POS: [facility]
[2017-11-05] MEDS: Megestrol Acetate 40 MG TAB PO SCH (20:50)
[2017-11-06] MEDS: Levothyroxine Sodium 50 MCG TAB PO SCH (05:45)
[2017-11-06 05:48] LABS: Anion Gap 10 mmol/L (10-20); BUN (Urea Nitrogen) 10 mg/dL (9.8-20.1); Calc. Creatinine Clearance 39 mL/min (70-130); Calcium 7.3 mg/dL (7.8-10.44); Carbon Dioxide 18 mmol/L (23-31); Chloride 111 mmol/L (98-107); Estimated GFR-MDRD 71; Glucose 84 mg/dL (83-110); Potassium 3.6 mmol/L (3.5-5.1); Sodium 135 mmol/L (136-145)
[2017-11-06 06:16] LABS: Anisocytosis SLIGHT = 6-15 cells (100X) (0-5/hpf); Band 2 % (5-11); Eosinophils 1 % (0-10); Hemoglobin 9.2 g/dL (12.0-16.0); Lymphocytes 17 % (21-51); MDiff Complete? YES; Macrocytosis SLIGHT = 6-15 cells (100X) (0-5/hpf); Mean Corpuscular HGB CONC 33.7 g/dL (32.0-36.0); Mean Corpuscular Hemoglobin 34.8 pg (27.0-31.0); Mean Platelet Volume 8.1 fL (7.4-10.4); Monocytes 6 % (0-10); Neutrophil 74 % (42-75); PLT Morphology Comment Appears Adequate; Platelet Count 208 thou/uL (130-400); RBC Distribution Width 15.4 % (11.5-14.5); Red Blood Cell (RBC) Count 2.63 mill/uL (4.20-5.40); White Blood Cell (WBC) Count 8.9 thou/uL (4.8-10.8)
[2017-11-06] MEDS: Metoprolol Tartrate 25 MG TAB PO SCH ×2 (08:29→20:22)
[2017-11-06] MEDS: Megestrol Acetate 40 MG TAB PO SCH ×2 (08:50→20:22)
[2017-11-06] MEDS: Famotidine 20 MG TAB PO SCH (08:50)
--- NOTE | 2017-11-06 11:50 | PDOC.PN ---
- Subjective Encounter Start Date: 11/06/17 Encounter Start Time: 10:40 Subjective: more awake and oriented now -: still has sob/mouth breathing continues - Objective Resuscitation Status: Resuscitation Status DNR:Do Not Resuscitate MAR Reviewed: Yes Vital Signs & Weight: Vital Signs (12 hours) Temp Pulse Resp BP Pulse Ox 11/06/17 08:00 98.5 F 85 16 95 11/06/17 07:19 98.5 F 85 16 114/77 95 Weight Admit Weight 104 lb 12.8 oz Weight 110 lb 1.6 oz I&O: 11/05/17 11/06/17 11/07/17 06:59 06:59 06:59 Intake Total 1450 Output Total 550 1100 Balance 900 -1100 Result Diagrams: 11/06/17 04:54 11/06/17 04:54 Phys Exam - Physical Examination HEENT: PERRLA, sclera anicteric dry mucosa Neck: no JVD, supple Respiratory: no wheezing, no rales rhonchi+ Cardiovascular: RRR, no significant murmur Gastrointestinal: soft, non-tender, positive bowel sounds Musculoskeletal: no edema, pulses present Neurological: non-focal, moves all 4 limbs Psychiatric: A&O x 3 Dx/Plan (1) Hyponatremia Code(s): E87.1 - HYPO-OSMOLALITY AND HYPONATREMIA Status: Resolved (2) Metabolic encephalopathy Code(s): G93.41 - METABOLIC ENCEPHALOPATHY Status: Acute Comment: resolving , Multifactorial including NSTEMI, supportive (3) NSTEMI (non-ST elevated myocardial infarction) Code(s): I21.4 - NON-ST ELEVATION (NSTEMI) MYOCARDIAL INFARCTION Status: Acute Comment: Medical mgmt, continue ASA 81mg daily, no aggressive intervention (4) Sepsis Code(s): A41.9 - SEPSIS, UNSPECIFIED ORGANISM Status: Acute Qualifiers: Sepsis type: sepsis due to unspecified organism Qualified Code(s): A41.9 - Sepsis, unspecified organism (5) Chronic anemia Code(s): D64.9 - ANEMIA, UNSPECIFIED Status: Chronic Comment: stable (6) Hypertension Code(s): I10 - ESSENTIAL (PRIMARY) HYPERTENSION Status: Chronic Qualifiers: Hypertension type: essential hypertension Qualified Code(s): I10 - Essential (primary) hypertension (7) Hypothyroidism Code(s): E03.9 - HYPOTHYROIDISM, UNSPECIFIED Status: Chronic Qualifiers: Hypothyroidism type: unspecified Qualified Code(s): E03.9 - Hypothyroidism , unspecified Comment: Continue Levothyroxine 50mcg daily (8) Failure to thrive Code(s): [id number] - Status: Acute (9) Dementia Code(s): F03.90 - UNSPECIFIED DEMENTIA WITHOUT BEHAVIORAL DISTURBANCE Status: Chronic Qualifiers: Dementia type: unspecified type Dementia behavioral disturbance: without behavioral disturbance Qualified Code(s): F03.90 - Unspecified dementia without behavioral disturbance - Plan slow recovery, oral levaq, asp, lopressor, imdur and megace -: encourage po intake, ensure 1can bid atleast -: will need swing bed -: d/w daughter at bedside -: taper nasal oxygen to spo2 of 90% * . Review of Systems - Medications/Allergies Allergies/Adverse Reactions: Allergies Allergy/AdvReac Type Severity Reaction Status Date / Time No Known Allergies Allergy Verified 10/31/17 01:43 Medications: Current Medications Acetaminophen (Tylenol) 650 mg PO Q4H PRN PRN Reason: Headache/Fever or Pain Acetaminophen (Tylenol) 650 mg ID Q4H PRN PRN Reason: Headache/Fever or Pain Last Admin: 11/03/17 10:03 Dose: 650 mg Albuterol/Ipratropium (Duoneb) 3 ml NEB Q2H PRN PRN Reason: SOB &/or Wheezing Last Admin: 11/05/17 00:18 Dose: 3 ml Aspirin (Aspirin Chewable) 81 mg PO DAILY [facility] Last Admin: 11/06/17 08:50 Dose: 81 mg Famotidine (Pepcid) 20 mg PO DAILY [facility] Last Admin: 11/06/17 08:50 Dose: 20 mg Dextrose/Sodium Chloride (D5 0.9% Ns) 1,000 mls @ 50 mls/hr IV .Q20H [facility] Last Admin: 11/05/17 23:59 Dose: 1,000 mls Isosorbide Mononitrate (Imdur Er) 30 mg PO DAILY [facility] Last Admin: 11/06/17 08:29 Dose: Not Given Labetalol HCl (Normodyne) 10 mg SLOW IVP Q4H PRN PRN Reason: Systolic BP > 180 Levofloxacin (Levaquin) 500 mg PO 0600 [facility] Levothyroxine Sodium (Synthroid) 50 mcg PO 0600 [facility] Last Admin: 11/06/17 05:45 Dose: 50 mcg Megestrol Acetate (Megace) 40 mg PO BID [facility] Last Admin: 11/06/17 08:50 Dose: 40 mg Metoprolol Tartrate (Lopressor) 12.5 mg PO BID [facility] Last Admin: 11/06/17 08:29 Dose: Not Given Morphine Sulfate (Morphine) 2 mg SLOW IVP Q5MIN PRN PRN Reason: Chest Pain Ondansetron HCl (Zofran) 4 mg IVP Q6H PRN PRN Reason: Nausea/Vomiting Sodium Chloride (Flush - Normal Saline) 10 ml IVF Q12HR [facility] Last Admin: 11/06/17 08:30 Dose: Not Given Sodium Chloride (Flush - Normal Saline) 10 ml IVF PRN PRN PRN Reason: Saline Flush
[2017-11-06] MEDS: Dextrose 5 % And 0.9 % NaCl 1,000 ML IV SCH (20:22)
[2017-11-07] MEDS: Levothyroxine Sodium 50 MCG TAB PO SCH (05:48)
[2017-11-07] MEDS: Famotidine 20 MG TAB PO SCH (09:55)
[2017-11-07] MEDS: Megestrol Acetate 40 MG TAB PO SCH ×2 (09:56→20:11)
[2017-11-07] MEDS: Metoprolol Tartrate 25 MG TAB PO SCH ×2 (09:56→20:11)
--- NOTE | 2017-11-07 10:38 | PDOC.PN ---
- Subjective Encounter Start Date: 11/07/17 Encounter Start Time: 08:30 Subjective: awake and oriented -: lethargic, moves all exremities - Objective Resuscitation Status: Resuscitation Status DNR:Do Not Resuscitate MAR Reviewed: Yes Vital Signs & Weight: Vital Signs (12 hours) Temp Pulse Resp BP Pulse Ox 11/07/17 10:06 97.8 F 77 16 97 11/07/17 08:26 97.8 F 77 16 92/54 L 97 11/07/17 05:58 100.4 F H 82 20 149/89 H 96 Weight Admit Weight 104 lb 12.8 oz Weight 110 lb 1.6 oz I&O: 11/06/17 11/07/17 11/08/17 06:59 06:59 06:59 Output Total 1100 300 Balance -1100 -300 Result Diagrams: 11/06/17 04:54 11/06/17 04:54 Phys Exam - Physical Examination HEENT: PERRLA, sclera anicteric dry mucosa Neck: no JVD, supple Respiratory: no wheezing, no rales Cardiovascular: RRR, no significant murmur Gastrointestinal: soft, non-tender, positive bowel sounds Musculoskeletal: no edema, pulses present Neurological: non-focal, moves all 4 limbs Dx/Plan (1) Hyponatremia Code(s): E87.1 - HYPO-OSMOLALITY AND HYPONATREMIA Status: Resolved (2) Metabolic encephalopathy Code(s): G93.41 - METABOLIC ENCEPHALOPATHY Status: Acute Comment: resolving , Multifactorial including NSTEMI, supportive (3) NSTEMI (non-ST elevated myocardial infarction) Code(s): I21.4 - NON-ST ELEVATION (NSTEMI) MYOCARDIAL INFARCTION Status: Acute Comment: Medical mgmt, continue ASA 81mg daily, no aggressive intervention (4) Sepsis Code(s): A41.9 - SEPSIS, UNSPECIFIED ORGANISM Status: Resolved Qualifiers: Sepsis type: sepsis due to unspecified organism Qualified Code(s): A41.9 - Sepsis, unspecified organism (5) Chronic anemia Code(s): D64.9 - ANEMIA, UNSPECIFIED Status: Chronic Comment: stable (6) Hypertension Code(s): I10 - ESSENTIAL (PRIMARY) HYPERTENSION Status: Chronic Qualifiers: Hypertension type: essential hypertension Qualified Code(s): I10 - Essential (primary) hypertension (7) Hypothyroidism Code(s): E03.9 - HYPOTHYROIDISM, UNSPECIFIED Status: Chronic Qualifiers: Hypothyroidism type: unspecified Qualified Code(s): E03.9 - Hypothyroidism , unspecified Comment: Continue Levothyroxine 50mcg daily (8) Failure to thrive Code(s): [id number] - Status: Acute (9) Dementia Code(s): F03.90 - UNSPECIFIED DEMENTIA WITHOUT BEHAVIORAL DISTURBANCE Status: Chronic Qualifiers: Dementia type: unspecified type Dementia behavioral disturbance: without behavioral disturbance Qualified Code(s): F03.90 - Unspecified dementia without behavioral disturbance (10) Physical deconditioning Code(s): R53.81 - OTHER MALAISE Status: Acute - Plan is on asp, low dose lopressor and ismo bid -: levaquin for another 2 days and dc -: has severe deconditioning and will need swing bed -: encourage po intake, dc iv fluids -: check bnp for today, to mobilize and amb as tolerated * . Review of Systems - Medications/Allergies Allergies/Adverse Reactions: Allergies Allergy/AdvReac Type Severity Reaction Status Date / Time No Known Allergies Allergy Verified 10/31/17 01:43 Medications: Current Medications Acetaminophen (Tylenol) 650 mg PO Q4H PRN PRN Reason: Headache/Fever or Pain Last Admin: 11/07/17 05:48 Dose: 650 mg Acetaminophen (Tylenol) 650 mg GA Q4H PRN PRN Reason: Headache/Fever or Pain Last Admin: 11/03/17 10:03 Dose: 650 mg Albuterol/Ipratropium (Duoneb) 3 ml NEB Q2H PRN PRN Reason: SOB &/or Wheezing Last Admin: 11/05/17 00:18 Dose: 3 ml Aspirin (Aspirin Chewable) 81 mg PO DAILY [facility] Last Admin: 11/07/17 09:56 Dose: 81 mg Famotidine (Pepcid) 20 mg PO DAILY [facility] Last Admin: 11/07/17 09:55 Dose: 20 mg Isosorbide Mononitrate (Ismo) 5 mg PO BID [facility] Labetalol HCl (Normodyne) 10 mg SLOW IVP Q4H PRN PRN Reason: Systolic BP > 180 Levofloxacin (Levaquin) 500 mg PO 0600 [facility] Last Admin: 11/07/17 05:48 Dose: 500 mg Levothyroxine Sodium (Synthroid) 50 mcg PO 0600 [facility] Last Admin: 11/07/17 05:48 Dose: 50 mcg Megestrol Acetate (Megace) 40 mg PO BID [facility] Last Admin: 11/07/17 09:56 Dose: 40 mg Metoprolol Tartrate (Lopressor) 12.5 mg PO BID [facility] Last Admin: 11/07/17 09:56 Dose: Not Given Ondansetron HCl (Zofran) 4 mg IVP Q6H PRN PRN Reason: Nausea/Vomiting Sodium Chloride (Flush - Normal Saline) 10 ml IVF Q12HR [facility] Last Admin: 11/07/17 09:57 Dose: Not Given Sodium Chloride (Flush - Normal Saline) 10 ml IVF PRN PRN PRN Reason: Saline Flush
[2017-11-07 11:27] LABS: Anion Gap 14 mmol/L (10-20); BUN (Urea Nitrogen) 10 mg/dL (9.8-20.1); Calc. Creatinine Clearance 39 mL/min (70-130); Calcium 7.1 mg/dL (7.8-10.44); Carbon Dioxide 12 mmol/L (23-31); Chloride 113 mmol/L (98-107); Estimated GFR-MDRD 70; Glucose 84 mg/dL (83-110); Potassium 3.7 mmol/L (3.5-5.1); Sodium 135 mmol/L (136-145)
[2017-11-07 11:56] LABS: Band 1 % (5-11); Eosinophils 5 % (0-10); Hemoglobin 9.1 g/dL (12.0-16.0); Lymphocytes 26 % (21-51); MDiff Complete? YES; Macrocytosis SLIGHT = 6-15 cells (100X) (0-5/hpf); Mean Corpuscular HGB CONC 33.2 g/dL (32.0-36.0); Mean Corpuscular Hemoglobin 37.1 pg (27.0-31.0); Mean Platelet Volume 9.2 fL (7.4-10.4); Metamyelocyte 1 % (0-0); Monocytes 1 % (0-10); Neutrophil 66 % (42-75); PLT Morphology Comment Appears Adequate; Platelet Count 174 thou/uL (130-400); Polychromasia SLIGHT = 2-3 cells (100X) (0-2/hpf); RBC Distribution Width 15.9 % (11.5-14.5); Red Blood Cell (RBC) Count 2.44 mill/uL (4.20-5.40)
[2017-11-07] MEDS: Isosorbide Mononitrate 20 MG TAB PO SCH (20:10)
[2017-11-08] MEDS: Levothyroxine Sodium 50 MCG TAB PO SCH (05:22)
[2017-11-08] MEDS ORDERED: Furosemide 20 MG/2 ML VIAL SLOW IVP SCH (08:15)
[2017-11-08] MEDS ORDERED: Dextrose 5 % And 0.9 % NaCl 1,000 ML IV SCH (08:15)
[2017-11-08] MEDS: Metoprolol Tartrate 25 MG TAB PO SCH (08:42)
[2017-11-08] MEDS: Megestrol Acetate 40 MG TAB PO SCH (08:42)
[2017-11-08] MEDS: Famotidine 20 MG TAB PO SCH (08:42)
[2017-11-08] MEDS: Isosorbide Mononitrate 20 MG TAB PO SCH (08:43)
[2017-11-08 11:12] VITALS: BP 90/56; TEMP 98
--- NOTE | 2017-11-08 13:00 | PDOC.PN ---
- Subjective Encounter Start Date: 11/08/17 Encounter Start Time: 07:15 Subjective: lethargic, oriented well -: is not eating/drinking much - Objective Resuscitation Status: Resuscitation Status DNR:Do Not Resuscitate MAR Reviewed: Yes Vital Signs & Weight: Vital Signs (12 hours) Temp Pulse Resp BP Pulse Ox 11/08/17 11:10 98.0 F 94 20 90/56 L 94 L 11/08/17 07:45 100.0 F H 112 H 24 H 96/61 96 11/08/17 07:27 97.9 F 100 18 11/08/17 01:13 97.9 F 100 18 96/62 92 L Weight Admit Weight 104 lb 12.8 oz Weight 110 lb 1.6 oz I&O: 11/07/17 11/08/17 11/09/17 06:59 06:59 06:59 Intake Total 1005 Output Total 300 425 150 Balance -300 580 -150 Result Diagrams: 11/07/17 11:00 11/07/17 11:00 Additional Labs: Accuchecks 11/08/17 04:41 POC Glucose 65 L Phys Exam - Physical Examination HEENT: PERRLA, sclera anicteric dry mucosa Neck: no JVD, supple Respiratory: no wheezing, no rales Cardiovascular: RRR, no significant murmur Gastrointestinal: soft, non-tender, positive bowel sounds Musculoskeletal: no edema, pulses present Neurological: non-focal, moves all 4 limbs Dx/Plan (1) Hyponatremia Code(s): E87.1 - HYPO-OSMOLALITY AND HYPONATREMIA Status: Resolved (2) Metabolic encephalopathy Code(s): G93.41 - METABOLIC ENCEPHALOPATHY Status: Acute Comment: resolving , Multifactorial including NSTEMI, supportive (3) NSTEMI (non-ST elevated myocardial infarction) Code(s): I21.4 - NON-ST ELEVATION (NSTEMI) MYOCARDIAL INFARCTION Status: Acute Comment: Medical mgmt, continue ASA 81mg daily, no aggressive intervention (4) Sepsis Code(s): A41.9 - SEPSIS, UNSPECIFIED ORGANISM Status: Resolved Qualifiers: Sepsis type: sepsis due to unspecified organism Qualified Code(s): A41.9 - Sepsis, unspecified organism (5) Chronic anemia Code(s): D64.9 - ANEMIA, UNSPECIFIED Status: Chronic Comment: stable (6) Hypertension Code(s): I10 - ESSENTIAL (PRIMARY) HYPERTENSION Status: Chronic Qualifiers: Hypertension type: essential hypertension Qualified Code(s): I10 - Essential (primary) hypertension (7) Hypothyroidism Code(s): E03.9 - HYPOTHYROIDISM, UNSPECIFIED Status: Chronic Qualifiers: Hypothyroidism type: unspecified Qualified Code(s): E03.9 - Hypothyroidism , unspecified Comment: Continue Levothyroxine 50mcg daily (8) Failure to thrive Code(s): [id number] - Status: Acute (9) Dementia Code(s): F03.90 - UNSPECIFIED DEMENTIA WITHOUT BEHAVIORAL DISTURBANCE Status: Chronic Qualifiers: Dementia type: unspecified type Dementia behavioral disturbance: without behavioral disturbance Qualified Code(s): F03.90 - Unspecified dementia without behavioral disturbance (10) Physical deconditioning Code(s): R53.81 - OTHER MALAISE Status: Acute - Plan pt is not eating much or drinking well -: is oriented well, d/w daughter this am, no peg tube -: No statins for now until she starts oral intake well, is severely deconditi -: -oned and has barely stood with PT -: may dc to swing bed, d/w over phone * . If she worsens, hospice will be arranged at [facility].
--- NOTE | 2017-11-08 14:58 | DIS ---
DATE OF ADMISSION: 10/31/2017 DATE OF DISCHARGE: 11/08/2017 DISCHARGE DISPOSITION: To [facility]. PRIMARY DISCHARGE DIAGNOSES: Failure to thrive, severe deconditioning, sepsis, non-ST elevation myoc ardial infarction, metabolic encephalopathy, multiple electrolyte abnormalities, hypothyroidism, hype rtension, chronic anemia and dementia. PROCEDURES DONE DURING HOSPITALIZATION: Echo with 2D Doppler done showed an ejection fraction of 55% to 60%, moderate tricuspid regurgitation, moderately elevated pulmonary artery pressure with PA pres sures estimated to be [address] brain done showed no acute intracranial abnormalities. Chest x-ra y done showed chronic interstitial changes, otherwise no acute infiltrate was noted. Blood cultures x2 no growth. Urine culture no growth. Respiratory virus panel, PCR was negative. Discharge white count of 6. Discharge hemoglobin and hematocrit 9 and 27, platelet count 174 with 66% neutrophils. Had a BNP of 899 this morning and was given a dose of Lasix 20 mg IV push x1. Troponin I was elevate d with peaking up to 6.8, CK-MB peaking up to 11.8, total cholesterol 124 and triglycerides 298. Yoshi e T3 was 1.62 and free T4 0.8. DISCHARGE MEDICATIONS: The patient is on aspirin 81 mg p.o. daily, Pepcid 20 mg twice daily, DuoNebs 4 times daily, Ismo 5 mg p.o. twice daily, Synthroid 50 mcg p.o. daily, Megace 40 mg p.o. twice meredith y and Lopressor 12.5 mg p.o. twice daily. ALLERGIES: No known drug allergies. INPATIENT CONSULTS: Dr. Reece for Cardiology and Dr. Fournier for Infectious Disease. BRIEF COURSE DURING HOSPITALIZATION: Patient initially got admitted for complaints of weakness and f ever of 101 at home. Patient also had acute encephalopathy on admission. Her troponin was indetermi bimal on arrival and was trending upwards. She has had consultation with Dr. San/M[facility]as[facility] Cardiology. The patient was suspected to have non-ST elevation ME. Given her age of 87 years with her being encephalopathic, no cardiac intervention was done. She was initially on Lovenox, which wa s discontinued after she became more stable. For the last 3 days, the patient has been oriented well , but still lethargic. Her oral intake is still poor. She was given antibiotics for 8 days and this was discontinued this morning. The patient is a do not resuscitate. I have been in touch with the patient's daughter, Ms. Carrero, all through her hospitalization. The family did not want feeding tube as patient had not wished for the same. If her oral intake further worsens or if she deteriorates c linically, patient will most likely go into hospice at the [facility] in [place]. I have given full updates to Dr. Carvalho, who will be taking over care at the [facility] in [place]. A total of 35 minutes was spent on discharge plan. Please see a [id number] documentation on [facility] for the day of discharge.
== END 2017-11-08 13:51 | DRG 871 ==
LOC: ERS 17:21 → ERHOLD 20:29 → 2NO 10-31 01:07 → T4-A 11-03 14:57
PROVIDERS: ADMIT Internal Medicine; ATTEND Internal Medicine
DX: A41.9 Sepsis, unspecified organism (principal); I21.4 Non-ST elevation (NSTEMI) myocardial infarction; E43 Unspecified severe protein-calorie malnutrition; G93.41 Metabolic encephalopathy; Z68.1 Body mass index [BMI] 19.9 or less, adult; E87.1 Hypo-osmolality and hyponatremia; Z66 Do not resuscitate; E03.9 Hypothyroidism, unspecified; R62.7 Adult failure to thrive; I10 Essential (primary) hypertension; D64.9 Anemia, unspecified; F03.90 Unspecified dementia, unspecified severity, without behavioral disturbance, psychotic disturbance, mood disturbance, and anxiety; Z79.899 Other long term (current) drug therapy; Z96.642 Presence of left artificial hip joint
CPT/HCPCS: 36415; 36416; 51701; 70450; 71045; 80048; 80053; 80061; 81003; 82553; 82607; 82728; 82746; 83540; 83550; 83605; 83690; 83735; 83880; 84100; 84439; 84443; 84481; 84484; 85025; 85610; 85730; 87040; 87086; 87633; 87798; 90471; 90670; 93005; 93010; 93306; 93798; 96365; 96366; 96372; 96375; A4216; A4353; G0009; G8978-GP-CM; G8979-GP-CK; G8996-GN-CN; G8997-GN-CN; J1650; J1940; J1956; J2060; J2930; J3475; J3480; J3486; J7620; S0028; S0179